=== PATIENT | male | born 1955 | race Caucasian/White ===

== ENCOUNTER 2021-10-06 01:40 | Inpatient (IN) | payer MEDICARE, MEDICAID ==
[~2021-10-06] VITALS: Ht 167.6 cm; Wt 81.7 kg
[2021-10-06] VITALS (23 sets, daily range): BP systolic 68–161; BP diastolic 25–86
[2021-10-06] MEDS ORDERED: NORepinephrine 8mg/ 250ml NS 250 ML IV ONE (04:17)
--- NOTE | 2021-10-06 04:30 | NUR ---
Pt accepted from outside facility. Makes noises and cries out "mama" to noxious stimuli. O2 @ 2L/NC. Breath sounds clear feliberto. Mouth full of chunky yellow substance. aggressive oral care given to clear airway. PIVx3, Lt hand 20g occluded. LFA 20g with good blood return. Levo infusing at 0.4mcg/kg/min. 20g IV RH with NS 20ml/hr. Peg clamped, site clear. Incont of stool. Sacral area and buttocks with purple discoloration and questionable open area. Photo taken. Feliberto heels reddened, Rt heel boggy to touch, photos take, Lt medial maleolous reddened.
[2021-10-06] MEDS ORDERED: magnesium hydroxide 30ml (MOM) UD suspension PO PRN (04:50)
[2021-10-06] MEDS ORDERED: ondansetron/PF 4mg/2ml inj IV PRN ×2 (04:50→11:20)
[2021-10-06] MEDS ORDERED: LIDOcaine 2% 10ml TOPICAL JELLY (Urojet) TP ONE (04:50)
[2021-10-06] MEDS ORDERED: potassium Cl 20 mEq SR tablet PO PRN ×3 (04:50→08:30)
[2021-10-06] MEDS ORDERED: acetaminophen 325mg tablet PO PRN ×2 (04:50)
[2021-10-06] MEDS ORDERED: NOREPINEPHRINE BITARTRATE/D5W 250 ML IV PRN (05:00)
[2021-10-06] MEDS ORDERED: NORepinephrine 8mg/ 250ml NS 250 ML IV PRN (05:00)
[2021-10-06] MEDS ORDERED: vancomycin 1,750 MG in NS 350ml IV soln IV ONE (05:30)
--- NOTE | 2021-10-06 05:30 | NUR ---
noted BP cuff too large. appropriately sized cuff placed. Weaning levo off, NS bolus nearly complete
[2021-10-06 06:26] LABS: BASOPHILS % (AUTO) 0.1 % (0-1); EOSINOPHILS % (AUTO) 0 % (0-6); HEMATOCRIT 35.2 % (42.0-52.0); HEMOGLOBIN 11.3 g/dl (14.0-17.9); MEAN CORPUSCULAR HEMOGLOBIN 26.5 PG (27.0-31.0); MEAN CORPUSCULAR HGB CONC 32.1 g/dL (33.0-36.5); MEAN CORPUSCULAR VOLUME 82.5 FL (78-98); MONOCYTES # (AUTO) 1.4 X10'3 (0-0.9); MONOCYTES % (AUTO) 7.9 % (2-12); NEUTROPHILS # (AUTO) 14.8 X10'3 (1.8-7.7); PLATELET COUNT 237 X10'3 (140-440); RED BLOOD COUNT 4.26 X10'6 (4.70-6.10); RED CELL DISTRIBUTION WIDTH 19.2 % (11.5-14.5); WHITE BLOOD COUNT 18.3 X10'3 (4.5-11.0)
[2021-10-06] MEDS ORDERED: CLOP-32 PEG (06:38)
[2021-10-06] MEDS ORDERED: MAGN400O6 PEG (06:38)
[2021-10-06] MEDS ORDERED: ACET-890 PEG (06:38)
[2021-10-06] MEDS ORDERED: POLY17PO10 PEG (06:38)
[2021-10-06] MEDS ORDERED: PEG15DRO6 EACHEYE (06:38)
[2021-10-06] MEDS ORDERED: SENN-263 PEG (06:38)
[2021-10-06] MEDS ORDERED: METF-436 PEG (06:38)
[2021-10-06] MEDS ORDERED: LEVO500P12 IV (06:38)
[2021-10-06] MEDS ORDERED: ONDA4VIA6 IV (06:38)
[2021-10-06] MEDS ORDERED: INSU100C10 SQ (06:38)
[2021-10-06] MEDS ORDERED: TOPI50TA24 PEG (06:38)
[2021-10-06] MEDS ORDERED: ATOR40TA71 PEG (06:38)
[2021-10-06] MEDS ORDERED: TERA1CAP4 PEG (06:38)
[2021-10-06] MEDS ORDERED: PARO40TA4 PEG (06:38)
[2021-10-06] MEDS ORDERED: AMLO10TA PEG (06:38)
[2021-10-06] MEDS ORDERED: OMEP40CA21 PEG (06:38)
[2021-10-06] MEDS ORDERED: LOSA50TA64 PEG (06:38)
[2021-10-06 06:42] LABS: APTT 36 SECONDS (22-32)
[2021-10-06 06:49] LABS: CLARITY,URINE CLEAR (Clear); COLOR,URINE YELLOW (Yellow); GLUCOSE, URINE NEGATIVE (Neg); KETONES,URINE NEGATIVE (Neg); LEUKOCYTE ESTERASE ,URINE NEGATIVE (Neg); NITRITES, URINE NEGATIVE (Neg); OCCULT BLOOD,URINE SMALL (Neg); PROTEIN,URINE 30 mg/dl (Neg); UROBILINOGEN,URINE 0.2 E.U/dL (0.2-1.0)
--- NOTE | 2021-10-06 07:23 | NUR ---
Patient in room ICU 2044. I have received report from Amanda FU and had the opportunity to ask questions and assume patient care. Addendum: 10/06/21 at 0723 by Aurelia Randhawa RN Amended: Links added.
[2021-10-06] MEDS: heparin, porcine 5000 units/ml vial SQ SCH ×2 (07:34→20:31)
[2021-10-06 07:50] LABS: ALANINE AMINOTRANSFERASE 10 U/L (12-78); ALBUMIN 1.9 G/DL (3.4-5.0); ALBUMIN/GLOBULIN RATIO 0.5 (1.1-1.5); ALKALINE PHOSPHATASE 60 IU/L (46-116); ANION GAP 16 (8-16); ASPARTATE AMINO TRANSFERASE 15 U/L (10-37); BILIRUBIN,TOTAL 0.6 MG/DL (0.1-1.0); BLOOD UREA NITROGEN 41 MG/DL (7-18); BUN/CREATININE RATIO 25.5 (5.4-32.0); CALCIUM 7.6 MG/DL (8.5-10.1); CHLORIDE 116 MMOL/L (99-107); CREATININE 1.61 MG/DL (0.60-1.10); GLUCOSE 161 MG/DL (70-104); SODIUM 151 MMOL/L (135-145); TOTAL CARBON DIOXIDE 18.7 MMOL/L (24-32); TOTAL PROTEIN 5.7 G/DL (6.4-8.2); eGFR 43 ML/MIN
[2021-10-06] MEDS ORDERED: K and/or MAG REPLACEMENT MC SCH (08:00)
[2021-10-06 08:08] LABS: POTASSIUM 2.8 MMOL/L (3.5-5.1)
--- NOTE | 2021-10-06 08:24 | NUR ---
RN notified Dr. Saravia of LA 4.7, K 2.8. Orders received.
[2021-10-06] MEDS ORDERED: magnesium 4gm in 100ml NS 100 ML IV PRN (08:30)
[2021-10-06] MEDS ORDERED: magnesium 2GM in 50ml NS 50 ML IV PRN (08:30)
[2021-10-06] MEDS: piperacillin/tazo 3.375gm/50ml 50 ML IV SCH ×2 (08:50→15:34)
[2021-10-06] MEDS: potassium CL 10mEq/100ml bag 100 ML IV PRN ×2 (08:58→09:51)
[2021-10-06] MEDS: normal saline 1000ml 1,000 ML IV SCH ×2 (09:12→16:10)
[2021-10-06 09:29] LABS: BACTERIA,URINE FEW /HPF (Neg); RBC,URINE NONE SEEN /HPF (0-2); WBC,URINE 0-4 /HPF (0-4)
[2021-10-06] MEDS ORDERED: ALBU1.257 NEB (09:30)
[2021-10-06 09:31] LABS: AMORPHOUS URATES 2+; RENAL CELLS, URINE MODERATE /HPF; SQUAMOUS EPITHELIAL CELL,UR FEW /LPF (FEW); TRANSITIONAL EPI CELLS,URINE FEW /HPF
[2021-10-06 09:40] LABS: UA COLLECTION TYPE FOLEY CATH
[2021-10-06] MEDS ORDERED: diatr meglu/diatrizoate 30ml oral sol.-(3 dose) bottle ONE (10:00)
[2021-10-06] MEDS: potassium Cl 20mEq/100mL bag 100 ML IV PRN ×3 (10:53→13:11)
[2021-10-06] MEDS ORDERED: non-formulary drug (Insulin Lispro (Humalog) 1 UNITS) SQ PRN (11:20)
[2021-10-06] MEDS ORDERED: albuterol 1.25 MG/3 ML (1/2 strength) nebule NEB PRN (11:20)
[2021-10-06 11:21] LABS: BANDS% (MANUAL) 23 % (0-10); LYMPHOCYTES % (MANUAL) 17 % (21-51); MONOCYTES % (MANUAL) 5 % (2-12); NEUTROPHILS % (MANUAL) 55 % (42-75); PLATELET ESTIMATE NORMAL; TOTAL CELLS COUNTED 100
[2021-10-06 11:22] LABS: ACANTHOCYTES FEW; ANISOCYTOSIS 2+; BURR CELLS 3+; HYPOCHROMASIA 1+
[2021-10-06] MEDS ORDERED: atorvastatin 20mg tablet PO SCH (11:30)
[2021-10-06] MEDS ORDERED: PARoxetine 20mg tablet PO SCH (11:31)
[2021-10-06] MEDS ORDERED: clopidogrel 75mg tablet PO SCH (11:33)
[2021-10-06] MEDS ORDERED: MESSAGE TO PHARMACY PO ONE (11:35)
[2021-10-06] MEDS ORDERED: dextrose 50%-water 50ml dispensing syringe IV PRN ×2 (11:35)
[2021-10-06] MEDS ORDERED: insulin Lispro (HumaLOG) vial - multi-dose SQ SCH (11:35)
[2021-10-06] MEDS ORDERED: glucagon, human recombinant 1mg kit SUBCUT PRN (11:35)
[2021-10-06] MEDS ORDERED: dextrose ORAL solution 15 GM/59 ML bottle PO PRN ×2 (11:35)
[2021-10-06] MEDS ORDERED: albuterol 2.5 MG/3 ML nebule NEB PRN (11:37)
[2021-10-06] MEDS: topiramate 25mg tablet PEG SCH ×2 (11:50→20:32)
[2021-10-06] MEDS: hydrocortisone sod succ/PF 100mg/2ml inj. IV SCH ×3 (11:52→20:31)
[2021-10-06] MEDS: pantoprazole IV 40 MG in dextrose 5%-water 100 ML IV SCH (11:55)
--- NOTE | 2021-10-06 12:41 | NUR ---
Initial: Pt transferred from previous facility w/ hypotension, sepsis, peritonitis and potentially dislodged PEG per EMR. Per [employer], okay to start TF once proper positioning of PEG is confirmed, see recs below. No BM documented yet. Pt noted w/ purple discoloration on sacral area, pending WOC. Will continue to monitor TF tolerance and adjust needs as medically indicated. Recs: 1) Once PEG placement confirmed; Continuous TF using Vital AF at 65ml/hr goal to provide 1560ml volume, 1872kcals, 117g protein, 1265ml free water 2) Additional free water 200ml Q4H; monitor serum Na 3) PALB Q / 4) Daily wts 5) Routine Bowel care Addendum: 10/06/21 at [address] Amended: Links added. Addendum: 10/08/21 at [address] Tube Feed Consult
[2021-10-06] MEDS ORDERED: mineral oil/petrolatum ophthal oint EACHEYE SCH (14:00)
--- NOTE | 2021-10-06 15:30 | NUR ---
Dr. Saravia aware that pt's POA would like a phone call re. pt's status/dx/plan of care, etc.
[2021-10-06] MEDS ORDERED: acetaminophen 325mg tablet GT PRN (16:07)
[2021-10-06] MEDS ORDERED: dextrose ORAL solution 15 GM/59 ML bottle GT PRN ×2 (16:08)
[2021-10-06] MEDS ORDERED: magnesium hydroxide 30ml (MOM) UD suspension GT PRN (16:08)
[2021-10-06] MEDS ORDERED: potassium Cl 20 mEq SR tablet PEG PRN ×3 (16:09)
--- NOTE | 2021-10-06 18:00 | NUR ---
Dr. Saravia spoke with Pavithra cuevas's POA via phone.
--- NOTE | 2021-10-06 18:10 | NUR ---
Problems reprioritized. Patient report given, questions answered & plan of care reviewed with NOC RN.
--- NOTE | 2021-10-06 18:30 | NUR ---
Patient in room ICU 2044. I have received report from Aurelia FU and had the opportunity to ask questions and assume patient care.
[2021-10-06] MEDS: sennosides 8.6mg tablet PEG SCH (20:00)
[2021-10-06] MEDS: K and/or MAG REPLACEMENT MC SCH (20:00)
[2021-10-06] MEDS: lactobacillus rhamnosus 10,000 MMU CELLS/CAPSULE PEG SCH (20:31)
[2021-10-06] MEDS: insulin glargine (Lantus) pen - multi-dose SQ SCH (21:00)
[2021-10-06] MEDS: polyethylene glycol 3350 17gm powd pack PEG SCH (21:24)
[2021-10-07] VITALS (24 sets, daily range): BP systolic 104–160; BP diastolic 48–84
[2021-10-07] MEDS: piperacillin/tazo 3.375gm/50ml 50 ML IV SCH ×4 (00:07→23:46)
[2021-10-07] MEDS: hydrocortisone sod succ/PF 100mg/2ml inj. IV SCH ×4 (01:49→20:15)
[2021-10-07 06:05] LABS: BASOPHILS % (AUTO) 0 % (0-1); EOSINOPHILS % (AUTO) 0 % (0-6); HEMOGLOBIN 13.4 g/dl (14.0-17.9); LYMPHOCYTES # (AUTO) 0.8 X10'3 (1.1-4.8); LYMPHOCYTES % (AUTO) 5.3 % (21-51); MEAN CORPUSCULAR HEMOGLOBIN 25.9 PG (27.0-31.0); MEAN CORPUSCULAR HGB CONC 31.9 g/dL (33.0-36.5); MEAN CORPUSCULAR VOLUME 81.2 FL (78-98); MEAN PLATELET VOLUME 9.5 FL (7.4-10.4); MONOCYTES # (AUTO) 0.6 X10'3 (0-0.9); MONOCYTES % (AUTO) 4.3 % (2-12); NEUTROPHILS # (AUTO) 12.8 X10'3 (1.8-7.7); NEUTROPHILS % (AUTO) 90.4 % (42-75); PLATELET COUNT 308 X10'3 (140-440); RED BLOOD COUNT 5.18 X10'6 (4.70-6.10); RED CELL DISTRIBUTION WIDTH 20.5 % (11.5-14.5); WHITE BLOOD COUNT 14.2 X10'3 (4.5-11.0)
[2021-10-07 06:30] LABS: ALBUMIN 1.9 G/DL (3.4-5.0); ANION GAP 16 (8-16); BLOOD UREA NITROGEN 36 MG/DL (7-18); BUN/CREATININE RATIO 28.3 (5.4-32.0); CALCIUM 8.7 MG/DL (8.5-10.1); CHLORIDE 117 MMOL/L (99-107); CREATININE 1.27 MG/DL (0.60-1.10); GLUCOSE 182 MG/DL (70-104); MAGNESIUM 2.2 MG/DL (1.5-2.4); PHOSPHORUS 3.6 MG/DL (2.3-4.5); POTASSIUM 3.7 MMOL/L (3.5-5.1); PREALBUMIN 7.2 MG/DL (19-36); SODIUM 147 MMOL/L (135-145); eGFR 57 ML/MIN
[2021-10-07 06:37] LABS: TOTAL CARBON DIOXIDE 14.3 MMOL/L (24-32)
[2021-10-07] MEDS: normal saline 1000ml 1,000 ML IV SCH (06:51)
[2021-10-07] MEDS: atorvastatin 20mg tablet GT SCH (07:11)
[2021-10-07] MEDS: clopidogrel 75mg tablet PEG SCH (07:11)
[2021-10-07] MEDS: lactobacillus rhamnosus 10,000 MMU CELLS/CAPSULE PEG SCH ×2 (07:12→20:16)
[2021-10-07] MEDS: topiramate 25mg tablet PEG SCH ×2 (07:12→20:16)
[2021-10-07] MEDS: sennosides 8.6mg tablet PEG SCH ×2 (07:12→20:16)
[2021-10-07] MEDS: PARoxetine 20mg tablet GT SCH (07:12)
[2021-10-07] MEDS: heparin, porcine 5000 units/ml vial SQ SCH ×2 (07:13→20:15)
[2021-10-07] MEDS: pantoprazole IV 40 MG in dextrose 5%-water 100 ML IV SCH (07:13)
[2021-10-07] MEDS: acetaminophen 325mg tablet PEG SCH (07:14)
[2021-10-07 07:15] LABS: PLATELET ESTIMATE NORMAL; TOTAL CELLS COUNTED 100
[2021-10-07 07:16] LABS: ANISOCYTOSIS 2+; BURR CELLS 3+; ELLIPTOCYTES FEW; HYPOCHROMASIA 1+
[2021-10-07] MEDS: insulin regular, human U-100 3ml vial - multi-dose SQ SCH ×3 (07:28→20:54)
[2021-10-07] MEDS: vancomycin/NS 1 GM ADD-VANTAGE 250 ML IV SCH (07:35)
[2021-10-07] MEDS: K and/or MAG REPLACEMENT MC SCH (08:00)
[2021-10-07] MEDS: sodium bicarbonate (8.4%) inj. 150 MEQ in dextrose 5%-water 1,000 ML IV SCH ×2 (08:22→17:00)
--- NOTE | 2021-10-07 09:46 | NUR ---
Kade consult: Per [facility] note, pt w/ MEHREEN on coccyx. No change to nutrition recommendations at this time. Addendum: 10/07/21 at [address] Amended: Links added.
[2021-10-07] MEDS: HYDROmorphone inj. 0.5 MG/0.5 ML DISP.SYRIN IV PRN (13:28)
--- NOTE | 2021-10-07 15:45 | NUR ---
CASE MANAGEMENT called with update on pt's HX. "Pt. had Covid and multiple CVAs in last year, was taking pureed food PO and PEG tube was only in use PRN when more calories were needed. PEG tube has become dislodged multiple times."
--- NOTE | 2021-10-07 15:50 | NUR ---
RN called and notified Dr. Saravia of pt's low urine output and HX. that was found from case management. Orders received.
[2021-10-07] MEDS ORDERED: furosemide 20 MG/2 ML vial IV ONE (15:55)
--- NOTE | 2021-10-07 18:08 | NUR ---
Problems reprioritized. Patient report given, questions answered & plan of care reviewed with NOC RN.
--- NOTE | 2021-10-07 18:30 | NUR ---
Patient in room ICU 2044. I have received report from Aurelia FU and had the opportunity to ask questions and assume patient care.
[2021-10-07] MEDS: polyethylene glycol 3350 17gm powd pack PEG SCH (21:00)
[2021-10-07] MEDS: insulin glargine (Lantus) pen - multi-dose SQ SCH (21:00)
--- NOTE | 2021-10-07 21:00 | NUR ---
Pt tube feeding was above 500ml residual. Per protocol, tube feeding was turned off and 300ml returned. Lantus was held but humalog Addendum: 10/07/21 at 2121 by Eloisa Hong RN Corrected: Pt tube feeding was above 500ml residual. Per protocol, tube feeding was turned off and 300ml returned. Lantus was held but humaLIN was given. Pt will be receiving gastrografin for CAT scan in AM so tube feeding will remain off until Pt returns.
[2021-10-07] MEDS: diatr meglu/diatrizoate 30ml oral sol.-(3 dose) bottle PO SCH (21:48)
[2021-10-07] MEDS: Dextrose 10%-water IV solution 1,000 ML IV SCH (23:47)
[2021-10-08] VITALS (24 sets, daily range): BP systolic 81–137; BP diastolic 36–92
[2021-10-08] MEDS ORDERED: sodium chloride inj. 154 MEQ in Dextrose 10%-water IV solution 961.5 ML IV SCH ×2
[2021-10-08] MEDS: HYDROmorphone inj. 0.5 MG/0.5 ML DISP.SYRIN IV PRN ×4 (02:06→22:53)
[2021-10-08] MEDS: hydrocortisone sod succ/PF 100mg/2ml inj. IV SCH ×4 (02:06→20:15)
[2021-10-08] MEDS: insulin regular, human U-100 3ml vial - multi-dose SQ SCH ×3 (02:26→14:49)
[2021-10-08] MEDS: sodium bicarbonate (8.4%) inj. 150 MEQ in dextrose 5%-water 1,000 ML IV SCH (04:29)
[2021-10-08 06:16] LABS: BASOPHILS % (AUTO) 0.2 % (0-1); EOSINOPHILS % (AUTO) 0 % (0-6); HEMATOCRIT 37.2 % (42.0-52.0); HEMOGLOBIN 12.4 g/dl (14.0-17.9); LYMPHOCYTES # (AUTO) 0.5 X10'3 (1.1-4.8); LYMPHOCYTES % (AUTO) 5.5 % (21-51); MEAN CORPUSCULAR HEMOGLOBIN 26.1 PG (27.0-31.0); MEAN CORPUSCULAR HGB CONC 33.3 g/dL (33.0-36.5); MEAN CORPUSCULAR VOLUME 78.5 FL (78-98); MEAN PLATELET VOLUME 9.5 FL (7.4-10.4); MONOCYTES # (AUTO) 0.4 X10'3 (0-0.9); MONOCYTES % (AUTO) 4.3 % (2-12); NEUTROPHILS # (AUTO) 8.5 X10'3 (1.8-7.7); PLATELET COUNT 297 X10'3 (140-440); RED BLOOD COUNT 4.74 X10'6 (4.70-6.10); RED CELL DISTRIBUTION WIDTH 19.4 % (11.5-14.5); WHITE BLOOD COUNT 9.4 X10'3 (4.5-11.0)
[2021-10-08 06:21] LABS: ALBUMIN 1.3 G/DL (3.4-5.0); ANION GAP 13 (8-16); BLOOD UREA NITROGEN 37 MG/DL (7-18); BUN/CREATININE RATIO 22.8 (5.4-32.0); CALCIUM 8.2 MG/DL (8.5-10.1); CHLORIDE 110 MMOL/L (99-107); CREATININE 1.62 MG/DL (0.60-1.10); GLUCOSE 270 MG/DL (70-104); MAGNESIUM 2.5 MG/DL (1.5-2.4); PHOSPHORUS 3.4 MG/DL (2.3-4.5); SODIUM 144 MMOL/L (135-145); TOTAL CARBON DIOXIDE 21.5 MMOL/L (24-32); eGFR 43 ML/MIN
--- NOTE | 2021-10-08 06:25 | NUR ---
Problems reprioritized. Patient report given, questions answered & plan of care reviewed with Leoncio FU.
[2021-10-08] MEDS: potassium Cl 20mEq/100mL bag 100 ML IV PRN (06:57)
[2021-10-08] MEDS: diatr meglu/diatrizoate 30ml oral sol.-(3 dose) bottle PO SCH ×2 (07:20→15:06)
[2021-10-08] MEDS: K and/or MAG REPLACEMENT MC SCH ×2 (07:35→20:00)
[2021-10-08] MEDS: lansoprazole 15mg solutab PEG SCH (07:38)
[2021-10-08] MEDS: atorvastatin 20mg tablet GT SCH (07:38)
[2021-10-08] MEDS: lactobacillus rhamnosus 10,000 MMU CELLS/CAPSULE PEG SCH ×2 (07:38→20:10)
[2021-10-08] MEDS: clopidogrel 75mg tablet PEG SCH (07:39)
[2021-10-08] MEDS: piperacillin/tazo 3.375gm/50ml 50 ML IV SCH ×3 (07:40→23:57)
[2021-10-08] MEDS: heparin, porcine 5000 units/ml vial SQ SCH ×2 (07:40→20:15)
[2021-10-08] MEDS: PARoxetine 20mg tablet GT SCH (07:42)
[2021-10-08] MEDS: topiramate 25mg tablet PEG SCH ×2 (07:42→20:16)
[2021-10-08] MEDS: acetaminophen 325mg tablet PEG SCH (07:45)
[2021-10-08] MEDS: sennosides 8.6mg tablet PEG SCH ×2 (07:45→20:16)
[2021-10-08] MEDS: potassium CL 10mEq/100ml bag 100 ML IV PRN ×3 (08:16→23:57)
[2021-10-08 11:28] LABS: ANISOCYTOSIS 2+; PLATELET ESTIMATE NORMAL; TOTAL CELLS COUNTED 100
[2021-10-08 11:29] LABS: BURR CELLS 2+; ELLIPTOCYTES FEW; MICROCYTOSIS 1+
[2021-10-08] MEDS: vancomycin/NS 1 GM ADD-VANTAGE 250 ML IV SCH (11:33)
--- NOTE | 2021-10-08 12:00 | NUR ---
Patient present B/P 85/36 Hr 119 , the Levophed was restart until the B/P improve.
[2021-10-08] MEDS: metoclopramide 5 mg/ml inj IV SCH ×2 (13:06→20:15)
[2021-10-08] MEDS: sodium chloride 0.45% 1,000 ML IV SCH ×2 (13:06→21:45)
[2021-10-08] MEDS ORDERED: iohexol 300mg/ml 100ml inj. ONE (15:31)
[2021-10-08] MEDS: Dextrose 10%-water IV solution 1,000 ML IV SCH (16:50)
--- NOTE | 2021-10-08 18:30 | NUR ---
Patient in room ICU 2042. I have received report from Stanton FU and had the opportunity to ask questions and assume patient care.
[2021-10-08 19:46] LABS: MAGNESIUM 2.4 MG/DL (1.5-2.4); POTASSIUM 3.1 MMOL/L (3.5-5.1)
[2021-10-08] MEDS: polyethylene glycol 3350 17gm powd pack PEG SCH ×2 (20:16→21:00)
[2021-10-08] MEDS: insulin glargine (Lantus) pen - multi-dose SQ SCH (21:11)
[2021-10-09] VITALS (22 sets, daily range): BP systolic 68–124; BP diastolic 37–61
[2021-10-09] MEDS: metoclopramide 5 mg/ml inj IV SCH ×4 (02:23→20:39)
[2021-10-09] MEDS: hydrocortisone sod succ/PF 100mg/2ml inj. IV SCH ×4 (02:23→20:39)
[2021-10-09] MEDS: insulin regular, human U-100 3ml vial - multi-dose SQ SCH ×3 (02:34→14:33)
[2021-10-09] MEDS: potassium CL 10mEq/100ml bag 100 ML IV PRN ×2 (02:55→02:58)
[2021-10-09] MEDS ORDERED: albumin (Human) 5% 250ml 250 ML IV ONE ×3 (05:00→22:19)
[2021-10-09] MEDS: NORepinephrine 8mg/ 250ml NS 250 ML IV SCH ×2 (05:16→21:43)
--- NOTE | 2021-10-09 06:00 | NUR ---
Patient in room ICU 2042. I have received report from Kang FU and had the opportunity to ask questions and assume patient care.
--- NOTE | 2021-10-09 06:21 | NUR ---
Problems reprioritized. Patient report given, questions answered & plan of care reviewed with Gracie FU.
[2021-10-09] MEDS ORDERED: VANCOMYCIN LEVEL IV ONE (06:30)
[2021-10-09] MEDS: K and/or MAG REPLACEMENT MC SCH ×2 (08:00→20:00)
[2021-10-09] MEDS: topiramate 25mg tablet PEG SCH ×2 (08:00→20:00)
[2021-10-09] MEDS: acetaminophen 325mg tablet PEG SCH (08:07)
[2021-10-09] MEDS: atorvastatin 20mg tablet GT SCH (08:07)
[2021-10-09] MEDS: lactobacillus rhamnosus 10,000 MMU CELLS/CAPSULE PEG SCH ×2 (08:08→20:00)
[2021-10-09] MEDS: clopidogrel 75mg tablet PEG SCH (08:08)
[2021-10-09] MEDS: piperacillin/tazo 3.375gm/50ml 50 ML IV SCH ×2 (08:08→15:46)
[2021-10-09] MEDS: sodium chloride 0.45% 1,000 ML IV SCH ×2 (08:10→17:52)
[2021-10-09] MEDS: lansoprazole 15mg solutab PEG SCH (08:13)
[2021-10-09] MEDS: PARoxetine 20mg tablet GT SCH (08:13)
[2021-10-09] MEDS: sennosides 8.6mg tablet PEG SCH ×2 (08:17→20:00)
[2021-10-09] MEDS: heparin, porcine 5000 units/ml vial SQ SCH ×2 (08:21→20:00)
[2021-10-09 08:40] LABS: BASOPHILS % (AUTO) 0.1 % (0-1); EOSINOPHILS % (AUTO) 0 % (0-6); HEMATOCRIT 30.3 % (42.0-52.0); HEMOGLOBIN 9.9 g/dl (14.0-17.9); LYMPHOCYTES # (AUTO) 0.8 X10'3 (1.1-4.8); LYMPHOCYTES % (AUTO) 5.8 % (21-51); MEAN CORPUSCULAR HEMOGLOBIN 25.7 PG (27.0-31.0); MEAN CORPUSCULAR HGB CONC 32.6 g/dL (33.0-36.5); MEAN CORPUSCULAR VOLUME 78.8 FL (78-98); MEAN PLATELET VOLUME 9.1 FL (7.4-10.4); MONOCYTES # (AUTO) 0.7 X10'3 (0-0.9); MONOCYTES % (AUTO) 5.4 % (2-12); NEUTROPHILS # (AUTO) 12.1 X10'3 (1.8-7.7); NEUTROPHILS % (AUTO) 88.7 % (42-75); PLATELET COUNT 236 X10'3 (140-440); RED BLOOD COUNT 3.84 X10'6 (4.70-6.10); RED CELL DISTRIBUTION WIDTH 19.4 % (11.5-14.5); WHITE BLOOD COUNT 13.7 X10'3 (4.5-11.0)
[2021-10-09 09:25] LABS: BLOOD UREA NITROGEN 49 MG/DL (7-18); BUN/CREATININE RATIO 18.9 (5.4-32.0); CREATININE 2.59 MG/DL (0.60-1.10); eGFR 25 ML/MIN
[2021-10-09 09:28] LABS: ALBUMIN 1.4 G/DL (3.4-5.0); ANION GAP 10 (8-16); CALCIUM 7.9 MG/DL (8.5-10.1); CHLORIDE 103 MMOL/L (99-107); GLUCOSE 152 MG/DL (70-104); MAGNESIUM 2.5 MG/DL (1.5-2.4); PHOSPHORUS 4.2 MG/DL (2.3-4.5); POTASSIUM 3.8 MMOL/L (3.5-5.1); PREALBUMIN 4.5 MG/DL (19-36); SODIUM 136 MMOL/L (135-145)
[2021-10-09] MEDS: Dextrose 10%-water IV solution 1,000 ML IV SCH (09:49)
[2021-10-09 11:22] LABS: ANISOCYTOSIS 2+; BURR CELLS 3+; MICROCYTOSIS 1+; PLATELET ESTIMATE NORMAL
[2021-10-09 11:23] LABS: ELLIPTOCYTES FEW
[2021-10-09] MEDS: pantoprazole IV 40 MG in dextrose 5%-water 100 ML IV SCH (11:50)
--- NOTE | 2021-10-09 12:30 | NUR ---
Dr. Fofana at bedside, spoke to pts sister and consent obtained for exploratory laparotomy witnessed by me and an additional nurse. protonix given ivpb.
--- NOTE | 2021-10-09 13:46 | NUR ---
oral care performed, copious amount of thick secretions suctioned by me and respiratory therapy.
[2021-10-09] MEDS: HYDROmorphone inj. 0.5 MG/0.5 ML DISP.SYRIN IV PRN (14:09)
--- NOTE | 2021-10-09 14:26 | NUR ---
Reassessment: Pt TF off r/t peritonitis requiring ex lap per MD note. LBM 10/08 per EMR. Noted PALB 4.5 this AM yet to meet nutrition needs since admit 10/06. Currently receiving D10 at 60ml/hr providing 490 kcals/day. Will monitor for nutrition support needs post-op. Recs: 1) IF EN to resume; recommend continuous TF using Vital AF at 65ml/hr goal to provide 1560ml volume, 1872kcals, 117g protein, 1265ml free water 2) IF TF to resume; Additional free water 200ml Q4H; monitor serum Na 3) PALB Q /; Daily wts/scaled wt this admit 4) bowel care per post-op Addendum: 10/09/21 at [address] Amended: Links added.
[2021-10-09] MEDS ORDERED: ringers solution, lacted 1,000 ML IV SCH (17:45)
[2021-10-09] MEDS ORDERED: ondansetron/PF 4mg/2ml inj IV PRN (17:45)
[2021-10-09] MEDS ORDERED: NORepinephrine inj. 8 MG in dextrose 5%-water 242 ML IV SCH (17:45)
[2021-10-09] MEDS ORDERED: FENTANYL CITRATE/D5W/PF 100 ML IV PRN (17:45)
[2021-10-09] MEDS ORDERED: morphine 2 MG/ML inj. syringe IV PRN (17:45)
[2021-10-09] MEDS ORDERED: morphine 4 MG/ML inj SYRINge IV PRN (17:45)
[2021-10-09] MEDS ORDERED: LIDOcaine 1% (10mg/ml) 2ml vial ONE (17:58)
--- NOTE | 2021-10-09 18:26 | NUR ---
Problems reprioritized. Patient report given, questions answered & plan of care reviewed with Silvia FU.
--- NOTE | 2021-10-09 18:30 | NUR ---
Patient in room ICU 2042. I have received report from Tonja FU and had the opportunity to ask questions and assume patient care.
[2021-10-09] MEDS: polyethylene glycol 3350 17gm powd pack PEG SCH (20:40)
[2021-10-09] MEDS: insulin glargine (Lantus) pen - multi-dose SQ SCH (20:47)
[2021-10-09] MEDS ORDERED: MIDAZolam 1mg/ml 10ml vial ONE (21:10)
[2021-10-09] MEDS ORDERED: fentaNYL /PF 50mcg/ml 5ml ampule ONE (21:11)
[2021-10-09] MEDS ORDERED: propofol inj 20 ML IV ONE (21:12)
[2021-10-09] MEDS ORDERED: rocuronium 10mg/ml inj IV ONE ×2 (21:12→22:40)
--- NOTE | 2021-10-09 21:30 | NUR ---
Patient to OR with OR crew.
[2021-10-09] MEDS ORDERED: dexamethasone sod phosphate 10mg/ml inj ONE (21:37)
[2021-10-09] MEDS ORDERED: NORepinephrine 8 MG in NS 250 ML BAG (32 mcg/ml) IV ONE (21:37)
[2021-10-09] MEDS ORDERED: sevoflurane 250ml liquid IH ONE (21:37)
[2021-10-09] MEDS ORDERED: fluoroscein sod 10% (100mg/ml) 5ml vial ONE (23:13)
[2021-10-10] VITALS (23 sets, daily range): BP systolic 94–151; BP diastolic 47–65
[2021-10-10] MEDS: midazolam 100mg in NS 100ml 100 ML IV SCH ×2 (00:30→18:59)
[2021-10-10] MEDS: FENTANYL-0.9 % NACL/PF 100 ML IV PRN (00:31)
[2021-10-10 00:47] LABS: ABG BASE EXCESS -7.2 mmol/L (-2.0-2.0); ABG HCO3 18.7 mmol/L (22.0-26.0); ABG OXYGEN SATURATION 96.7 % (94-97); ABG PCO2 (T) 38.3 mmHg (35.0-48.0); ABG PO2 (T) 95.4 mmHg (75.0-100.0); FCOHb 0.3 % (0.0-3.9); FMetHb 0.4 % (0.0-1.5); PATIENT TEMPERATURE 36.7; PEEP 5 cm H2O; RESPIRATORY RATE 10 b/min; TIDAL VOLUME 600 mL; TOTAL HEMOGLOBIN 12.1 G/dl (14.0-18.0)
[2021-10-10] MEDS: piperacillin/tazo 3.375gm/50ml 50 ML IV SCH ×3 (01:31→19:26)
[2021-10-10] MEDS: hydrocortisone sod succ/PF 100mg/2ml inj. IV SCH ×4 (01:32→19:26)
[2021-10-10] MEDS: metoclopramide 5 mg/ml inj IV SCH ×2 (01:32→08:30)
[2021-10-10] MEDS: Dextrose 10%-water IV solution 1,000 ML IV SCH ×2 (01:35→04:50)
[2021-10-10 02:25] LABS: BASOPHILS % (AUTO) 0.2 % (0-1); EOSINOPHILS % (AUTO) 0.1 % (0-6); HEMATOCRIT 32.9 % (42.0-52.0); HEMOGLOBIN 10.8 g/dl (14.0-17.9); LYMPHOCYTES # (AUTO) 0.2 X10'3 (1.1-4.8); LYMPHOCYTES % (AUTO) 1.1 % (21-51); MEAN CORPUSCULAR HEMOGLOBIN 25.8 PG (27.0-31.0); MEAN CORPUSCULAR HGB CONC 32.9 g/dL (33.0-36.5); MEAN CORPUSCULAR VOLUME 78.3 FL (78-98); MEAN PLATELET VOLUME 9.3 FL (7.4-10.4); MONOCYTES # (AUTO) 0.6 X10'3 (0-0.9); MONOCYTES % (AUTO) 3.5 % (2-12); NEUTROPHILS % (AUTO) 95.1 % (42-75); PLATELET COUNT 325 X10'3 (140-440); RED CELL DISTRIBUTION WIDTH 19.6 % (11.5-14.5); WHITE BLOOD COUNT 17.9 X10'3 (4.5-11.0)
[2021-10-10 02:41] LABS: ALBUMIN 1.9 G/DL (3.4-5.0); ANION GAP 16 (8-16); BLOOD UREA NITROGEN 55 MG/DL (7-18); BUN/CREATININE RATIO 17.7 (5.4-32.0); CHLORIDE 101 MMOL/L (99-107); GLUCOSE 181 MG/DL (70-104); MAGNESIUM 2.4 MG/DL (1.5-2.4); PHOSPHORUS 5.2 MG/DL (2.3-4.5); POTASSIUM 3.3 MMOL/L (3.5-5.1); SODIUM 135 MMOL/L (135-145); TOTAL CARBON DIOXIDE 18.3 MMOL/L (24-32); eGFR 20 ML/MIN
[2021-10-10] MEDS: potassium CL 10mEq/100ml bag 100 ML IV PRN (03:18)
[2021-10-10 04:00] LABS: ANISOCYTOSIS 2+; PLATELET ESTIMATE NORMAL
[2021-10-10 04:01] LABS: BURR CELLS 3+; MICROCYTOSIS 1+
[2021-10-10] MEDS ORDERED: ringers solution, lacted 1,000 ML IV SCH (04:40)
[2021-10-10] MEDS: normal saline 1000ml 1,000 ML IV SCH ×2 (04:54→08:40)
--- NOTE | 2021-10-10 06:20 | NUR ---
Problems reprioritized. Patient report given, questions answered & plan of care reviewed with Ranjit FU.
[2021-10-10] MEDS: topiramate 25mg tablet PEG SCH ×2 (08:00→19:27)
[2021-10-10] MEDS: K and/or MAG REPLACEMENT MC SCH ×2 (08:00→19:27)
[2021-10-10] MEDS: acetaminophen 325mg tablet PEG SCH (08:00)
[2021-10-10] MEDS: sennosides 8.6mg tablet PEG SCH ×2 (08:00→19:27)
[2021-10-10] MEDS: lactobacillus rhamnosus 10,000 MMU CELLS/CAPSULE PEG SCH ×2 (08:00→19:26)
[2021-10-10] MEDS: PARoxetine 20mg tablet GT SCH (08:00)
[2021-10-10] MEDS: atorvastatin 20mg tablet GT SCH (08:00)
[2021-10-10] MEDS: clopidogrel 75mg tablet PEG SCH (08:00)
[2021-10-10] MEDS: pantoprazole IV 40 MG in dextrose 5%-water 100 ML IV SCH (08:29)
[2021-10-10] MEDS: heparin, porcine 5000 units/ml vial SQ SCH ×2 (08:31→19:26)
[2021-10-10] MEDS: insulin regular, human U-100 3ml vial - multi-dose SQ SCH ×3 (08:39→20:48)
[2021-10-10] MEDS: NORepinephrine 8mg/ 250ml NS 250 ML IV SCH (09:26)
[2021-10-10] MEDS ORDERED: vancomycin/NS 1 GM ADD-VANTAGE 250 ML IV PRN (11:45)
[2021-10-10] MEDS: dextrose 5%-lactated ringers 1,000 ML IV SCH ×2 (11:50→22:04)
[2021-10-10 12:31] LABS: VANCOMYCIN,RANDOM 17.1 UG/ML
--- NOTE | 2021-10-10 15:22 | NUR ---
Wound packing removed per MD order.
[2021-10-10] MEDS: insulin glargine (Lantus) pen - multi-dose SQ SCH (20:49)
[2021-10-10] MEDS: polyethylene glycol 3350 17gm powd pack PEG SCH (21:04)
--- NOTE | 2021-10-10 23:59 | NUR ---
Pt is a 66 yo male, full code, NDA, admitted 10/07/2021, day 5 of hospitalization, PMHX of CVA, dementia, PEG tube placement who presents from OSH as direct admit for hypotension. The pt reportedly had a PEG tube malfunction which was manipulated and feeds restarted. There is now abdominal pain and possible abdominal sepsis. The pt was transferred to OSH and then give 4 L crystalloid, Zosyn meropenem and Levaquin then started on levo through peripheral line and transferred to [place]. On arrival, the pt has BP of 80/40 on levo and so abx reinstated and pt given 1 L crystalloid. Currently, pt is s/p X-LAP placement of new gastric tube and abdominal clean out. Pt is afebrile, sedated with Fentanyl 50 mcgs (5 ml's), Versed 3 mg (3 ml's). Pt is unresponsive. Presence of bilateral soft wrist restraints. Orders and documentation in accordance with facility policies and procedures. HR 60-70's, NSR, weak pulses, left wrist A-Line BP 118/56, good square wave, flushes well with good blood return, Line zeroed. BP supported with Levophed at .06 mcgs (9.02 ml's). +3 generalized edema. SQ heparin for DVT prophylaxis. All IVF infusing via RIJ TLC. All port f/p, good blood return, dressing CDI. Intubated with ETT 7.0 23 cm. Vent: SIMV: rate 18, TV 400, Fio2 40% PEEP 5. Pulse ox 100% tolerating vent settings well. Breath sounds, coarse diminished, equal symmetrical, non labored. Hypoactive bowel sounds, round, mildly distended with a midline incision, dressing CDI. NPO. NGT Rt nare, draining green/brown stomach content. MARYAM drain draining SS fluid. Protonix for GI prophylaxis. Glucose chest Q 6 hours with coverage of Regular insulin and Lantus. At 20:00 glucose was 163 covered with 6 units of regular insulin. However, Lantus was increased to 29 units. IVF infusing D5 LR at 100 ml's/hr. Bladder non distended, Pappas draining clear yellow urine, grossly minimal amount of urine of 5 cc or less an hour. 10/10/2021 Renal US shows suboptimal examination with right kidney not able to be viewed and left kidney displays no evidence of hydronephrosis. Sacral DTI noted, Mepilex to sacral area, turn Q 2 hours. Continue ABX Zosyn and Vancomycin with Vancomycin due at 0300 today. Pt remains safe, continue to monitor.
[2021-10-11] VITALS (24 sets, daily range): BP systolic 101–138; BP diastolic 49–73
[2021-10-11] MEDS: hydrocortisone sod succ/PF 100mg/2ml inj. IV SCH ×4 (02:03→19:19)
[2021-10-11] MEDS: insulin regular, human U-100 3ml vial - multi-dose SQ SCH ×4 (02:24→20:06)
[2021-10-11] MEDS: VANCOMYCIN LEVEL IV SCH (03:00)
[2021-10-11 03:38] LABS: BASOPHILS % (AUTO) 0.2 % (0-1); EOSINOPHILS % (AUTO) 0 % (0-6); HEMATOCRIT 30.6 % (42.0-52.0); HEMOGLOBIN 9.9 g/dl (14.0-17.9); LYMPHOCYTES # (AUTO) 0.5 X10'3 (1.1-4.8); LYMPHOCYTES % (AUTO) 2.5 % (21-51); MEAN CORPUSCULAR HEMOGLOBIN 25.3 PG (27.0-31.0); MEAN CORPUSCULAR HGB CONC 32.3 g/dL (33.0-36.5); MEAN CORPUSCULAR VOLUME 78.4 FL (78-98); MONOCYTES # (AUTO) 0.7 X10'3 (0-0.9); MONOCYTES % (AUTO) 3.4 % (2-12); NEUTROPHILS # (AUTO) 18.3 X10'3 (1.8-7.7); NEUTROPHILS % (AUTO) 93.9 % (42-75); PLATELET COUNT 329 X10'3 (140-440); RED CELL DISTRIBUTION WIDTH 19.8 % (11.5-14.5); WHITE BLOOD COUNT 19.5 X10'3 (4.5-11.0)
[2021-10-11 03:48] LABS: ALBUMIN 1.3 G/DL (3.4-5.0); ANION GAP 15 (8-16); BLOOD UREA NITROGEN 61 MG/DL (7-18); BUN/CREATININE RATIO 16.5 (5.4-32.0); CALCIUM 7.7 MG/DL (8.5-10.1); CHLORIDE 102 MMOL/L (99-107); GLUCOSE 150 MG/DL (70-104); MAGNESIUM 2.3 MG/DL (1.5-2.4); PHOSPHORUS 5.1 MG/DL (2.3-4.5); POTASSIUM 3.6 MMOL/L (3.5-5.1); SODIUM 136 MMOL/L (135-145); TOTAL CARBON DIOXIDE 18.6 MMOL/L (24-32); VANCOMYCIN,RANDOM 18.6 UG/ML; eGFR 16 ML/MIN
[2021-10-11 04:21] LABS: ANISOCYTOSIS 2+; MICROCYTOSIS 1+; PLATELET ESTIMATE NORMAL; TOTAL CELLS COUNTED 100
[2021-10-11 04:22] LABS: BURR CELLS 3+
[2021-10-11 04:25] LABS: ABG BASE EXCESS -7.3 mmol/L (-2.0-2.0); ABG HCO3 16.7 mmol/L (22.0-26.0); ABG OXYGEN SATURATION 97.5 % (94-97); ABG PCO2 (T) 27.8 mmHg (35.0-48.0); ABG PO2 (T) 99.2 mmHg (75.0-100.0); FCOHb 0.3 % (0.0-3.9); FMetHb 0.3 % (0.0-1.5); FO2Hb 96.9 % (94-97); PATIENT TEMPERATURE 36.3; PEEP 5 cm H2O; RESPIRATORY RATE 18 b/min; TIDAL VOLUME 400 mL; TOTAL HEMOGLOBIN 10.8 G/dl (14.0-18.0)
[2021-10-11 05:58] LABS: CLARITY,URINE SLIGHTLY CLOUDY (Clear); COLOR,URINE YELLOW (Yellow); GLUCOSE, URINE NEGATIVE (Neg); KETONES,URINE NEGATIVE (Neg); LEUKOCYTE ESTERASE ,URINE NEGATIVE (Neg); NITRITES, URINE NEGATIVE (Neg); OCCULT BLOOD,URINE MODERATE (Neg); PROTEIN,URINE TRACE mg/dl (Neg); UROBILINOGEN,URINE 0.2 E.U/dL (0.2-1.0)
[2021-10-11 06:05] LABS: UA COLLECTION TYPE NON-SPECIFIED
[2021-10-11 06:07] LABS: BACTERIA,URINE FEW /HPF (Neg); SQUAMOUS EPITHELIAL CELL,UR FEW /LPF (FEW); URIC ACID CRYSTALS 1+ /HPF (NEGATIVE); WBC,URINE 0-4 /HPF (0-4)
[2021-10-11 06:08] LABS: AMORPHOUS URATES 1+
[2021-10-11] MEDS: NORepinephrine 8mg/ 250ml NS 250 ML IV SCH ×2 (07:23→23:59)
[2021-10-11] MEDS: dextrose 5%-lactated ringers 1,000 ML IV SCH ×2 (07:45→16:48)
[2021-10-11] MEDS: clopidogrel 75mg tablet PEG SCH (08:00)
[2021-10-11] MEDS: sennosides 8.6mg tablet PEG SCH ×2 (08:00→19:20)
[2021-10-11] MEDS: lactobacillus rhamnosus 10,000 MMU CELLS/CAPSULE PEG SCH ×2 (08:00→19:20)
[2021-10-11] MEDS: topiramate 25mg tablet PEG SCH ×2 (08:00→19:20)
[2021-10-11] MEDS: K and/or MAG REPLACEMENT MC SCH ×2 (08:00→19:20)
[2021-10-11] MEDS: atorvastatin 20mg tablet GT SCH (08:00)
[2021-10-11] MEDS: acetaminophen 325mg tablet PEG SCH (08:00)
[2021-10-11] MEDS: PARoxetine 20mg tablet GT SCH (08:00)
[2021-10-11] MEDS: pantoprazole IV 40 MG in dextrose 5%-water 100 ML IV SCH (08:59)
[2021-10-11] MEDS: heparin, porcine 5000 units/ml vial SQ SCH ×2 (09:03→19:19)
[2021-10-11] MEDS: piperacillin/tazo 3.375gm/50ml 50 ML IV SCH ×2 (09:03→19:19)
[2021-10-11 10:20] LABS: CLARITY,URINE CLOUDY (Clear); COLOR,URINE YELLOW (Yellow); GLUCOSE, URINE NEGATIVE (Neg); KETONES,URINE NEGATIVE (Neg); LEUKOCYTE ESTERASE ,URINE NEGATIVE (Neg); NITRITES, URINE NEGATIVE (Neg); OCCULT BLOOD,URINE MODERATE (Neg); PROTEIN,URINE TRACE mg/dl (Neg); UROBILINOGEN,URINE 0.2 E.U/dL (0.2-1.0)
[2021-10-11 10:26] LABS: UA COLLECTION TYPE NON-SPECIFIED
[2021-10-11 10:27] LABS: AMORPHOUS URATES 1+; BACTERIA,URINE NONE SEEN /HPF (Neg); MUCUS STRANDS FEW /LPF (Neg); RBC,URINE 0-2 /HPF (0-2); SQUAMOUS EPITHELIAL CELL,UR FEW /LPF (FEW); WBC,URINE 0-4 /HPF (0-4)
[2021-10-11] MEDS ORDERED: normal saline 1000ml 1,000 ML IV ONE (10:35)
[2021-10-11 10:47] LABS: UA EOSINOPHILS NO EOS /HPF
[2021-10-11 10:55] LABS: SODIUM,URINE RANDOM < 15 MEQ/L; TOTAL PROTEIN,URINE RANDOM 146.4 MG/DL
--- NOTE | 2021-10-11 12:36 | NUR ---
TF consult: Pt s/p G-tube revision 10/09. Okay to start trickle TF per MD. Will place additional TF recommendations below for once MD okays advancing goal rate to meet estimated nutrient needs. Noted pt receiving D5/LR at 100 mL/hr providing 408 kcal/day. LBM 10/09 per I&O. Will continue to follow closely and make recommendations as appropriate. Recommendations: 1) Trickle TF via G-tube per MD using Vital AF with goal rate of 15 mL/hr to provide 360 mL total volume/day, 432 kcal, 27 g protein, and 292 mL water 2) Once okay to advance TF, continuous Vital AF with 65 ml/hr goal to provide 1560 ml volume/day, 1872 kcal, 117 g protein, 1265 ml water 3) Once TF advances, monitor serum Na for water flush recommendations 4) PALB q Wednesday/ 5) Daily scaled weights 6) Bowel care per MD post-op Addendum: 10/11/21 at [address] Amended: Links added.
[2021-10-11] MEDS: FENTANYL-0.9 % NACL/PF 100 ML IV PRN (12:40)
[2021-10-11] MEDS: polyethylene glycol 3350 17gm powd pack PEG SCH (20:01)
[2021-10-11] MEDS: insulin glargine (Lantus) pen - multi-dose SQ SCH (20:09)
[2021-10-12] VITALS (24 sets, daily range): BP systolic 81–145; BP diastolic 48–82
[2021-10-12] MEDS: hydrocortisone sod succ/PF 100mg/2ml inj. IV SCH ×4 (01:04→19:46)
[2021-10-12] MEDS: insulin regular, human U-100 3ml vial - multi-dose SQ SCH (02:34)
[2021-10-12] MEDS: VANCOMYCIN LEVEL IV SCH ×2 (02:53→23:49)
[2021-10-12] MEDS: dextrose 5%-lactated ringers 1,000 ML IV SCH ×3 (02:55→23:56)
[2021-10-12 03:49] LABS: BASOPHILS % (AUTO) 0.1 % (0-1); EOSINOPHILS % (AUTO) 0 % (0-6); HEMOGLOBIN 9.8 g/dl (14.0-17.9); LYMPHOCYTES # (AUTO) 0.5 X10'3 (1.1-4.8); LYMPHOCYTES % (AUTO) 2.4 % (21-51); MEAN CORPUSCULAR HEMOGLOBIN 25.5 PG (27.0-31.0); MEAN CORPUSCULAR HGB CONC 32.7 g/dL (33.0-36.5); MEAN PLATELET VOLUME 9.3 FL (7.4-10.4); MONOCYTES # (AUTO) 0.6 X10'3 (0-0.9); NEUTROPHILS # (AUTO) 20.2 X10'3 (1.8-7.7); NEUTROPHILS % (AUTO) 94.5 % (42-75); PLATELET COUNT 325 X10'3 (140-440); RED BLOOD COUNT 3.85 X10'6 (4.70-6.10); RED CELL DISTRIBUTION WIDTH 19.9 % (11.5-14.5); WHITE BLOOD COUNT 21.4 X10'3 (4.5-11.0)
[2021-10-12] MEDS: FENTANYL-0.9 % NACL/PF 100 ML IV PRN (03:54)
[2021-10-12 04:06] LABS: ALBUMIN 1.1 G/DL (3.4-5.0); ANION GAP 16 (8-16); BLOOD UREA NITROGEN 66 MG/DL (7-18); BUN/CREATININE RATIO 16.3 (5.4-32.0); CALCIUM 7.9 MG/DL (8.5-10.1); CHLORIDE 105 MMOL/L (99-107); CREATININE 4.05 MG/DL (0.60-1.10); GLUCOSE 116 MG/DL (70-104); MAGNESIUM 2.3 MG/DL (1.5-2.4); PHOSPHORUS 4.9 MG/DL (2.3-4.5); POTASSIUM 3.5 MMOL/L (3.5-5.1); SODIUM 138 MMOL/L (135-145); TOTAL CARBON DIOXIDE 16.8 MMOL/L (24-32); VANCOMYCIN,RANDOM 16.7 UG/ML; eGFR 15 ML/MIN
--- NOTE | 2021-10-12 04:22 | NUR ---
Pt is a 66 yo male, full code, NDA, admitted 10/07/2021, day 6 of hospitalization, PMHX of CVA, dementia, PEG tube placement who presents from OSH as direct admit for hypotension. The pt reportedly had a PEG tube malfunction which was manipulated and feeds restarted. There is now abdominal pain and possible abdominal sepsis. The pt was transferred to OSH and then give 4 L crystalloid, Zosyn meropenem and Levaquin then started on levo through peripheral line and transferred to [place]. On arrival, the pt has BP of 80/40 on levo and so abx reinstated and pt given 1 L crystalloid. Currently, pt is s/p X-LAP placement of new gastric tube and abdominal clean out. Pt is afebrile, sedated with Fentanyl 50 mcgs (5 ml's). Pt is unresponsive. HR 60-70's, NSR, weak pulses, left wrist A-Line BP 118/56, good square wave, flushes well with good blood return, Line zeroed. BP supported with Levophed at .03 mcgs (4.51 ml's). +3 generalized edema. SQ heparin for DVT prophylaxis. All IVF infusing via RIJ TLC. All port f/p, good blood return, dressing CDI. Intubated with ETT 7.0 23 cm. Vent: SIMV: rate 18, TV 400, Fio2 40% PEEP 5, PS 10. Pulse ox 100% tolerating vent settings well. Breath sounds, clear diminished, equal symmetrical, non labored. Hypoactive bowel sounds, round, mildly distended with a midline incision, [employer] notable drainage at suture site. Tube feeding, Vital AF, started at 15 ml's hr, infusing via Peg tube. MARYAM drain draining SS fluid. Protonix for GI prophylaxis. Glucose chest Q 6 hours with coverage of Regular insulin and Lantus. At 20:00 glucose was 125 covered with 5 units, Level 6, regular insulin. Glucose at 0200, 102, 4 units of nutritional coverage. IVF infusing D5 LR at 100 ml's/hr. Bladder non distended, Pappas draining clear yellow urine, grossly minimal amount of urine of 5 cc or less an hour. 10/10/2021 Renal US shows suboptimal examination with right kidney not able to be viewed and left kidney displays no evidence of hydronephrosis. Sacral DTI noted, Mepilex to sacral area, turn Q 2 hours. Continue ABX Zosyn and Vancomycin with Vancomycin due at 0300 today. Pt remains safe, continue to monitor.
[2021-10-12 05:26] LABS: ABG BASE EXCESS -8.3 mmol/L (-2.0-2.0); ABG HCO3 15.2 mmol/L (22.0-26.0); ABG OXYGEN SATURATION 94.9 % (94-97); ABG PCO2 (T) 25.6 mmHg (35.0-48.0); ABG PO2 (T) 79.2 mmHg (75.0-100.0); FCOHb 0.3 % (0.0-3.9); FMetHb 0.3 % (0.0-1.5); FO2Hb 94.3 % (94-97); PEEP 5 cm H2O; RESPIRATORY RATE 18 b/min; TIDAL VOLUME 400 mL; TOTAL HEMOGLOBIN 10.6 G/dl (14.0-18.0)
[2021-10-12 06:02] LABS: ANISOCYTOSIS 2+; MICROCYTOSIS 1+; NUCLEATED RED BLOOD CELLS 1 /100WBC (0-0); PLATELET ESTIMATE NORMAL; TOTAL CELLS COUNTED 100
[2021-10-12 06:03] LABS: BURR CELLS 3+; LARGE PLATELETS FEW
[2021-10-12] MEDS: K and/or MAG REPLACEMENT MC SCH ×2 (08:00→20:00)
[2021-10-12] MEDS: clopidogrel 75mg tablet PEG SCH (08:00)
[2021-10-12] MEDS: topiramate 25mg tablet PEG SCH ×2 (08:44→19:46)
[2021-10-12] MEDS: PARoxetine 20mg tablet GT SCH (08:44)
[2021-10-12] MEDS: heparin, porcine 5000 units/ml vial SQ SCH ×2 (08:45→19:46)
[2021-10-12] MEDS: acetaminophen 325mg tablet PEG SCH (08:45)
[2021-10-12] MEDS: sennosides 8.6mg tablet PEG SCH ×2 (08:45→19:45)
[2021-10-12] MEDS: piperacillin/tazo 3.375gm/50ml 50 ML IV SCH ×2 (08:45→19:45)
[2021-10-12] MEDS: lactobacillus rhamnosus 10,000 MMU CELLS/CAPSULE PEG SCH ×2 (08:45→19:46)
[2021-10-12] MEDS: atorvastatin 20mg tablet GT SCH (08:45)
[2021-10-12] MEDS: pantoprazole IV 40 MG in dextrose 5%-water 100 ML IV SCH (08:58)
--- NOTE | 2021-10-12 18:24 | NUR ---
Problems reprioritized. Patient report given, questions answered & plan of care reviewed with NICKIE Betancourt.
--- NOTE | 2021-10-12 19:00 | NUR ---
Patient in room ICU 2042. I have received report from NICKIE Betancourt and had the opportunity to ask questions and assume patient care.
[2021-10-12] MEDS: NORepinephrine 8mg/ 250ml NS 250 ML IV SCH (19:21)
[2021-10-12] MEDS: polyethylene glycol 3350 17gm powd pack PEG SCH (20:04)
[2021-10-12] MEDS ORDERED: insulin Lispro (HumaLOG) vial - multi-dose SQ SCH (20:10)
[2021-10-12] MEDS: insulin glargine (Lantus) pen - multi-dose SQ SCH (20:27)
[2021-10-13] VITALS (23 sets, daily range): BP systolic 81–158; BP diastolic 31–74
[2021-10-13] MEDS: hydrocortisone sod succ/PF 100mg/2ml inj. IV SCH ×4 (02:26→21:14)
[2021-10-13 02:57] LABS: BASOPHILS # (AUTO) 0.1 X10'3 (0-0.2); BASOPHILS % (AUTO) 0.2 % (0-1); EOSINOPHILS % (AUTO) 0 % (0-6); HEMATOCRIT 33.1 % (42.0-52.0); HEMOGLOBIN 10.6 g/dl (14.0-17.9); LYMPHOCYTES # (AUTO) 0.5 X10'3 (1.1-4.8); LYMPHOCYTES % (AUTO) 2.1 % (21-51); MEAN CORPUSCULAR HEMOGLOBIN 25.1 PG (27.0-31.0); MEAN CORPUSCULAR HGB CONC 32.1 g/dL (33.0-36.5); MEAN CORPUSCULAR VOLUME 78.4 FL (78-98); MEAN PLATELET VOLUME 9.1 FL (7.4-10.4); MONOCYTES # (AUTO) 0.7 X10'3 (0-0.9); MONOCYTES % (AUTO) 3.3 % (2-12); NEUTROPHILS # (AUTO) 21.5 X10'3 (1.8-7.7); NEUTROPHILS % (AUTO) 94.4 % (42-75); PLATELET COUNT 389 X10'3 (140-440); RED BLOOD COUNT 4.22 X10'6 (4.70-6.10); RED CELL DISTRIBUTION WIDTH 20.5 % (11.5-14.5); WHITE BLOOD COUNT 22.7 X10'3 (4.5-11.0)
[2021-10-13] MEDS: FENTANYL-0.9 % NACL/PF 100 ML IV PRN (03:07)
[2021-10-13 03:42] LABS: BLOOD UREA NITROGEN 69 MG/DL (7-18); BUN/CREATININE RATIO 15.4 (5.4-32.0); CALCIUM 7.8 MG/DL (8.5-10.1); CHLORIDE 105 MMOL/L (99-107); CREATININE 4.47 MG/DL (0.60-1.10); GLUCOSE 130 MG/DL (70-104); MAGNESIUM 2.2 MG/DL (1.5-2.4); PHOSPHORUS 5.4 MG/DL (2.3-4.5); POTASSIUM 3.5 MMOL/L (3.5-5.1); PREALBUMIN 9.2 MG/DL (19-36); SODIUM 137 MMOL/L (135-145); TRIGLYCERIDES 151 MG/DL (20-135); VANCOMYCIN,RANDOM 13.9 UG/ML; eGFR 13 ML/MIN
[2021-10-13 03:53] LABS: ANION GAP 16 (8-16); TOTAL CARBON DIOXIDE 15.6 MMOL/L (24-32)
[2021-10-13 04:01] LABS: ABG BASE EXCESS -9.2 mmol/L (-2.0-2.0); ABG HCO3 14.9 mmol/L (22.0-26.0); ABG OXYGEN SATURATION 93.9 % (94-97); ABG PCO2 (T) 26.3 mmHg (35.0-48.0); ABG PO2 (T) 74.6 mmHg (75.0-100.0); FCOHb 0.1 % (0.0-3.9); FO2Hb 93.8 % (94-97); PATIENT TEMPERATURE 36.5; PEEP 5 cm H2O; TOTAL HEMOGLOBIN 11.2 G/dl (14.0-18.0)
[2021-10-13 04:07] LABS: ANISOCYTOSIS 3+; BURR CELLS 3+; LARGE PLATELETS FEW; MICROCYTOSIS 1+; PLATELET ESTIMATE NORMAL; TOTAL CELLS COUNTED 100
--- NOTE | 2021-10-13 06:34 | NUR ---
Problems reprioritized. Patient report given, questions answered & plan of care reviewed with NICKIE Dupont.
--- NOTE | 2021-10-13 06:35 | NUR ---
Patient in room ICU 2042. I have received report from Jes FU and had the opportunity to ask questions and assume patient care.
[2021-10-13] MEDS: pantoprazole IV 40 MG in dextrose 5%-water 100 ML IV SCH (07:21)
[2021-10-13] MEDS: heparin, porcine 5000 units/ml vial SQ SCH ×2 (07:25→21:16)
[2021-10-13] MEDS: sennosides 8.6mg tablet PEG SCH ×2 (07:25→21:16)
[2021-10-13] MEDS: acetaminophen 325mg tablet PEG SCH (07:26)
[2021-10-13] MEDS: clopidogrel 75mg tablet PEG SCH (07:26)
[2021-10-13] MEDS: topiramate 25mg tablet PEG SCH ×2 (07:26→21:15)
[2021-10-13] MEDS: atorvastatin 20mg tablet GT SCH (07:26)
[2021-10-13] MEDS: piperacillin/tazo 3.375gm/50ml 50 ML IV SCH ×2 (07:26→21:14)
[2021-10-13] MEDS: PARoxetine 20mg tablet GT SCH (07:26)
[2021-10-13] MEDS: lactobacillus rhamnosus 10,000 MMU CELLS/CAPSULE PEG SCH ×2 (07:26→21:15)
[2021-10-13] MEDS ORDERED: vancomycin inj. 750 MG in normal saline 250ml IV soln 250 ML IV ONE (07:45)
[2021-10-13] MEDS: K and/or MAG REPLACEMENT MC SCH ×2 (08:00→20:00)
[2021-10-13] MEDS: NORepinephrine 8mg/ 250ml NS 250 ML IV SCH (08:53)
[2021-10-13] MEDS: dextrose 5%-lactated ringers 1,000 ML IV SCH ×2 (09:45→14:40)
[2021-10-13] MEDS ORDERED: furosemide 20 MG/2 ML vial IV ONE (11:55)
[2021-10-13] MEDS: fluconazole-Diflucan 200mg/NS 100 ML IV SCH (12:19)
[2021-10-13] MEDS: midazolam 100mg in NS 100ml 100 ML IV SCH (17:45)
--- NOTE | 2021-10-13 18:20 | NUR ---
Problems reprioritized. Patient report given, questions answered & plan of care reviewed with Sierra FU.
[2021-10-13] MEDS: insulin glargine (Lantus) pen - multi-dose SQ SCH (21:00)
[2021-10-13] MEDS: polyethylene glycol 3350 17gm powd pack PEG SCH (21:14)
[2021-10-13] MEDS: diatr meglu/diatrizoate 30ml oral sol.-(3 dose) bottle PO SCH (21:27)
[2021-10-14] VITALS (28 sets, daily range): BP systolic 88–196; BP diastolic 45–143
[2021-10-14] MEDS: NORepinephrine 8mg/ 250ml NS 250 ML IV SCH (01:31)
[2021-10-14] MEDS: dextrose 5%-lactated ringers 1,000 ML IV SCH ×2 (02:48→14:25)
[2021-10-14] MEDS: hydrocortisone sod succ/PF 100mg/2ml inj. IV SCH ×5 (02:52→21:21)
[2021-10-14] MEDS: VANCOMYCIN LEVEL IV SCH (03:00)
[2021-10-14 03:11] LABS: BASOPHILS % (AUTO) 0.1 % (0-1); EOSINOPHILS % (AUTO) 0.1 % (0-6); HEMATOCRIT 33.3 % (42.0-52.0); HEMOGLOBIN 10.6 g/dl (14.0-17.9); LYMPHOCYTES # (AUTO) 0.6 X10'3 (1.1-4.8); LYMPHOCYTES % (AUTO) 2.8 % (21-51); MEAN CORPUSCULAR HEMOGLOBIN 25.3 PG (27.0-31.0); MEAN CORPUSCULAR HGB CONC 31.9 g/dL (33.0-36.5); MEAN CORPUSCULAR VOLUME 79.2 FL (78-98); MEAN PLATELET VOLUME 8.9 FL (7.4-10.4); MONOCYTES # (AUTO) 0.8 X10'3 (0-0.9); MONOCYTES % (AUTO) 3.6 % (2-12); NEUTROPHILS % (AUTO) 93.4 % (42-75); PLATELET COUNT 358 X10'3 (140-440); RED CELL DISTRIBUTION WIDTH 20.3 % (11.5-14.5); WHITE BLOOD COUNT 21.4 X10'3 (4.5-11.0)
[2021-10-14 03:36] LABS: ANION GAP 19 (8-16); BLOOD UREA NITROGEN 74 MG/DL (7-18); BUN/CREATININE RATIO 16.1 (5.4-32.0); CALCIUM 7.8 MG/DL (8.5-10.1); CHLORIDE 103 MMOL/L (99-107); CREATININE 4.61 MG/DL (0.60-1.10); GLUCOSE 166 MG/DL (70-104); MAGNESIUM 2.1 MG/DL (1.5-2.4); PHOSPHORUS 5.9 MG/DL (2.3-4.5); POTASSIUM 3.3 MMOL/L (3.5-5.1); SODIUM 138 MMOL/L (135-145); TOTAL CARBON DIOXIDE 15.7 MMOL/L (24-32); VANCOMYCIN,RANDOM 21.8 UG/ML; eGFR 13 ML/MIN
[2021-10-14 04:00] LABS: ABG BASE EXCESS -9.8 mmol/L (-2.0-2.0); ABG HCO3 14.6 mmol/L (22.0-26.0); ABG OXYGEN SATURATION 92.1 % (94-97); ABG PCO2 (T) 27.2 mmHg (35.0-48.0); ABG PO2 (T) 67.8 mmHg (75.0-100.0); FCOHb 0.3 % (0.0-3.9); FO2Hb 91.8 % (94-97); PATIENT TEMPERATURE 36.7; PEEP 5 cm H2O; TOTAL HEMOGLOBIN 10.8 G/dl (14.0-18.0)
[2021-10-14 04:47] LABS: ANISOCYTOSIS 3+; MICROCYTOSIS 1+; PLATELET ESTIMATE NORMAL; TOTAL CELLS COUNTED 100
[2021-10-14 04:48] LABS: BURR CELLS 3+
[2021-10-14] MEDS: diatr meglu/diatrizoate 30ml oral sol.-(3 dose) bottle PO SCH ×2 (07:07→21:33)
[2021-10-14] MEDS: acetaminophen 325mg tablet PEG SCH (07:36)
[2021-10-14] MEDS: atorvastatin 20mg tablet GT SCH (07:36)
[2021-10-14] MEDS: PARoxetine 20mg tablet GT SCH (07:36)
[2021-10-14] MEDS: clopidogrel 75mg tablet PEG SCH (07:36)
[2021-10-14] MEDS: lactobacillus rhamnosus 10,000 MMU CELLS/CAPSULE PEG SCH ×2 (07:37→21:08)
[2021-10-14] MEDS: topiramate 25mg tablet PEG SCH ×2 (07:37→21:08)
[2021-10-14] MEDS: sennosides 8.6mg tablet PEG SCH ×2 (07:37→21:08)
[2021-10-14] MEDS: pantoprazole IV 40 MG in dextrose 5%-water 100 ML IV SCH (07:37)
[2021-10-14] MEDS: piperacillin/tazo 3.375gm/50ml 50 ML IV SCH ×2 (07:38→21:07)
[2021-10-14] MEDS: heparin, porcine 5000 units/ml vial SQ SCH ×2 (07:38→21:07)
[2021-10-14] MEDS: fluconazole-Diflucan 200mg/NS 100 ML IV SCH (07:38)
[2021-10-14] MEDS: K and/or MAG REPLACEMENT MC SCH (07:39)
[2021-10-14] MEDS: furosemide 40mg/4ml inj IV SCH ×2 (10:57→16:54)
[2021-10-14] MEDS ORDERED: potassium Cl 40MEQ/250ML bag 270 ML IV PRN (14:15)
[2021-10-14] MEDS ORDERED: magnesium 4gm in 100ml NS 100 ML IV PRN (14:15)
[2021-10-14] MEDS ORDERED: Duosol 4k/NO Calcium 5,000 ML HE SCH ×2 (14:15→14:20)
[2021-10-14] MEDS ORDERED: calcium chloride inj. 1,000 MG in normal saline 100ml IV soln 100 ML IV PRN (14:15)
--- NOTE | 2021-10-14 15:35 | NUR ---
F/u 10/14: Pt remains intubated post-op TF stopped 12/12 AM though no RN note in EMR previously tolerating GRV WNL. Pt abdomen distended this AM s/p CT today pending RUQ fluid drain w/ PEG TF to restart at trickle today per MD. Pt also to start on CRRT given worsening renal function per MD; updated EN recs below if to advance. Currently day 8 no adequate nutrition intake in addition to rigid strength and BLE/BUE +2 edemas meeting severe malnutrition criteria; MD notified. IF pt to continue w/ prolonged NPO/trickle EN would benefit from TPN to meet needs given prolonged poor nutrition status. Noted no BM since admit 8 days as well receiving routine senna BID; may benefit from additional bowel care. Will continue to monitor for additional nutrition intervention needs. Recommendations: 1) Trickle TF via G-tube per MD using Vital AF with goal rate of 15 mL/hr to provide 360 mL total volume/day, 432 kcal, 27 g protein, and 292 mL water 2) IF TF to advance on CRRT, Vital High Protein at 75ml/hr goal to provide 1800ml volume/day, 1800 kcal, 158g protein, 1512ml water 3) additional water flush per MD on CRRT 4) PALB q Wednesday/; Daily scaled weights 5) IF to remain NPO vs EN to not advance; would benefit from TPN to meet nutrition needs day 8 poor nutrition status 6) Bowel care per MD post-op Addendum: 10/14/21 at [address] Amended: Links added.
[2021-10-14] MEDS: polyethylene glycol 3350 17gm powd pack PEG SCH (21:07)
[2021-10-14] MEDS: FENTANYL-0.9 % NACL/PF 100 ML IV PRN (21:21)
[2021-10-14] MEDS: insulin glargine (Lantus) pen - multi-dose SQ SCH (21:57)
[2021-10-14] MEDS: insulin regular, human U-100 3ml vial - multi-dose SQ SCH (22:00)
[2021-10-15] VITALS (27 sets, daily range): BP systolic 88–150; BP diastolic 28–67
[2021-10-15] MEDS: dextrose 5%-lactated ringers 1,000 ML IV SCH (00:08)
[2021-10-15] MEDS: furosemide 40mg/4ml inj IV SCH ×3 (00:12→08:00)
[2021-10-15 02:55] LABS: BASOPHILS % (AUTO) 0 % (0-1); EOSINOPHILS % (AUTO) 0 % (0-6); HEMOGLOBIN 8.1 g/dl (14.0-17.9); LYMPHOCYTES # (AUTO) 0.5 X10'3 (1.1-4.8); LYMPHOCYTES % (AUTO) 2.4 % (21-51); MEAN CORPUSCULAR HEMOGLOBIN 25.5 PG (27.0-31.0); MEAN CORPUSCULAR HGB CONC 32.4 g/dL (33.0-36.5); MEAN CORPUSCULAR VOLUME 78.7 FL (78-98); MEAN PLATELET VOLUME 8.6 FL (7.4-10.4); MONOCYTES # (AUTO) 0.7 X10'3 (0-0.9); MONOCYTES % (AUTO) 3.1 % (2-12); NEUTROPHILS # (AUTO) 20.2 X10'3 (1.8-7.7); NEUTROPHILS % (AUTO) 94.5 % (42-75); PLATELET COUNT 322 X10'3 (140-440); RED BLOOD COUNT 3.17 X10'6 (4.70-6.10); WHITE BLOOD COUNT 21.4 X10'3 (4.5-11.0)
[2021-10-15 03:01] LABS: ALBUMIN 0.9 G/DL (3.4-5.0); ANION GAP 16 (8-16); BLOOD UREA NITROGEN 76 MG/DL (7-18); BUN/CREATININE RATIO 15.7 (5.4-32.0); CHLORIDE 105 MMOL/L (99-107); CREATININE 4.84 MG/DL (0.60-1.10); GLUCOSE 225 MG/DL (70-104); PHOSPHORUS 6.2 MG/DL (2.3-4.5); POTASSIUM 3.3 MMOL/L (3.5-5.1); SODIUM 138 MMOL/L (135-145); TOTAL CARBON DIOXIDE 16.9 MMOL/L (24-32); eGFR 12 ML/MIN
[2021-10-15] MEDS: insulin regular, human U-100 3ml vial - multi-dose SQ SCH ×4 (03:12→20:39)
[2021-10-15 03:56] LABS: ABG BASE EXCESS -10.5 mmol/L (-2.0-2.0); ABG HCO3 13.9 mmol/L (22.0-26.0); ABG OXYGEN SATURATION 93.3 % (94-97); ABG PCO2 (T) 24.6 mmHg (35.0-48.0); FCOHb 0.3 % (0.0-3.9); FMetHb 0.2 % (0.0-1.5); FO2Hb 92.8 % (94-97); PATIENT TEMPERATURE 35.6; PEEP 5 cm H2O; TOTAL HEMOGLOBIN 8.8 G/dl (14.0-18.0)
[2021-10-15 04:23] LABS: LARGE PLATELETS FEW; PLATELET ESTIMATE NORMAL
[2021-10-15 04:24] LABS: ANISOCYTOSIS 2+; BURR CELLS 3+; MICROCYTOSIS 1+; POLYCHROMASIA FEW
--- NOTE | 2021-10-15 06:00 | NUR ---
Patient in room ICU 2042. I have received report from NICKIE Esquivel and had the opportunity to ask questions and assume patient care.
[2021-10-15] MEDS: Duosol 4k/NO Calcium 5,000 ML HE SCH ×11 (06:50→22:18)
[2021-10-15] MEDS: NORepinephrine 8mg/ 250ml NS 250 ML IV SCH ×3 (06:51→16:31)
[2021-10-15] MEDS: K and/or MAG REPLACEMENT MC SCH ×3 (06:55→20:00)
[2021-10-15] MEDS: VANCOMYCIN LEVEL IV SCH (06:55)
[2021-10-15] MEDS: heparin, porcine 5000 units/ml vial SQ SCH ×2 (07:49→20:21)
[2021-10-15] MEDS: clopidogrel 75mg tablet PEG SCH (07:51)
[2021-10-15] MEDS ORDERED: LIDOcaine 1% 30ml preserv. free vial IJ STA (07:58)
[2021-10-15] MEDS: PARoxetine 20mg tablet GT SCH (07:59)
[2021-10-15] MEDS: fluconazole-Diflucan 200mg/NS 100 ML IV SCH (07:59)
[2021-10-15] MEDS: hydrocortisone sod succ/PF 100mg/2ml inj. IV SCH ×3 (07:59→23:54)
[2021-10-15] MEDS: sennosides 8.6mg tablet PEG SCH ×2 (07:59→20:00)
[2021-10-15] MEDS: pantoprazole IV 40 MG in dextrose 5%-water 100 ML IV SCH (07:59)
[2021-10-15] MEDS: atorvastatin 20mg tablet GT SCH (07:59)
[2021-10-15] MEDS: lactobacillus rhamnosus 10,000 MMU CELLS/CAPSULE PEG SCH ×2 (07:59→20:21)
[2021-10-15] MEDS: topiramate 25mg tablet PEG SCH ×2 (08:00→20:21)
[2021-10-15] MEDS: piperacillin/tazo 3.375gm/50ml 50 ML IV SCH ×2 (08:00→20:22)
[2021-10-15] MEDS: acetaminophen 325mg tablet PEG SCH (08:00)
--- NOTE | 2021-10-15 09:30 | NUR ---
Gilmar placed bedside by Dr. Saravia with x1 RN there for assistance. Patient tolerated well.
[2021-10-15] MEDS: calcium chloride inj. 10,000 MG in normal saline 500ml IV soln 400 ML IV PRN (11:42)
[2021-10-15] MEDS: citrate dextrose 1000ml IV sol 1,000 ML IV PRN ×4 (11:43→23:37)
[2021-10-15] MEDS ORDERED: heparin 1,000unit/ml 10ml vial 10 ML ONE (12:26)
--- NOTE | 2021-10-15 12:30 | NUR ---
CVVH started by FABIAN Lopez RN. Patient's VSS, in no apparent distress.
--- NOTE | 2021-10-15 12:34 | NUR ---
TF Consult: Pt TF okay to advance to goal per surgeon reported by RN at rounds. Noted TF at 35ml/hr this AM not 15ml/hr prior trickle recs; TF to initiate at 55ml/hr since tolerating prior 35ml/hr rate. First BM this admit large 10/14 per EMR following prior 8 days constipation. Pt to start CVVH today per RN at rounds; TF recs below. Will monitor for TF tolerance and adjustment needs this admit. Recommendations: 1) Continuous TF via G-tube per MD using Vital High Protein at 75ml/hr goal to provide 1800ml volume/day, 1800 kcal, 158g protein, 1512ml water 2) additional water flush per MD on CRRT 3) PALB q Wednesday/; Daily scaled weights 4) Monitor for EN tolerance and adjustment needs 5) routine bowel care Addendum: 10/15/21 at [address] Amended: Links added.
--- NOTE | 2021-10-15 13:00 | NUR ---
IR bedside to place abdominal drain. Patient VSS, in no apparent distress. Tolerated well.
[2021-10-15] MEDS: HYDROmorphone 1 mg/ml syringe IV PRN ×2 (13:24→19:24)
[2021-10-15 14:11] LABS: ANION GAP 16 (8-16); BLOOD UREA NITROGEN 66 MG/DL (7-18); BUN/CREATININE RATIO 14.9 (5.4-32.0); CHLORIDE 103 MMOL/L (99-107); CREATININE 4.43 MG/DL (0.60-1.10); GLUCOSE 133 MG/DL (70-104); MAGNESIUM 1.8 MG/DL (1.5-2.4); PHOSPHORUS 5.5 MG/DL (2.3-4.5); SODIUM 136 MMOL/L (135-145); TOTAL CARBON DIOXIDE 17.4 MMOL/L (24-32); eGFR 13 ML/MIN
[2021-10-15 14:16] LABS: BASOPHILS % (AUTO) 0 % (0-1); EOSINOPHILS % (AUTO) 0.1 % (0-6); HEMATOCRIT 25.3 % (42.0-52.0); HEMOGLOBIN 8.2 g/dl (14.0-17.9); LYMPHOCYTES # (AUTO) 0.7 X10'3 (1.1-4.8); MEAN CORPUSCULAR HEMOGLOBIN 25.4 PG (27.0-31.0); MEAN CORPUSCULAR HGB CONC 32.2 g/dL (33.0-36.5); MEAN CORPUSCULAR VOLUME 78.6 FL (78-98); MEAN PLATELET VOLUME 8.7 FL (7.4-10.4); MONOCYTES # (AUTO) 0.8 X10'3 (0-0.9); MONOCYTES % (AUTO) 2.3 % (2-12); NEUTROPHILS # (AUTO) 31.9 X10'3 (1.8-7.7); NEUTROPHILS % (AUTO) 95.6 % (42-75); PLATELET COUNT 368 X10'3 (140-440); RED BLOOD COUNT 3.22 X10'6 (4.70-6.10); RED CELL DISTRIBUTION WIDTH 20.1 % (11.5-14.5)
[2021-10-15 14:21] LABS: WHITE BLOOD COUNT 33.4 X10'3 (4.5-11.0)
--- NOTE | 2021-10-15 14:50 | NUR ---
PICC placed by NICKIE Jay. Patient tolerated well, all lines to be changed and transferred to PICC. CL to be d/c'd.
[2021-10-15 15:02] LABS: ANISOCYTOSIS 3+; GIANT PLATELET FEW; MICROCYTOSIS 1+; PLATELET ESTIMATE NORMAL; TOTAL CELLS COUNTED 100
[2021-10-15 15:03] LABS: BURR CELLS 2+; ELLIPTOCYTES FEW; TEAR DROP CELLS FEW
[2021-10-15 15:12] LABS: BASOPHILS # (AUTO) 0.1 X10'3 (0-0.2); BASOPHILS % (AUTO) 0.3 % (0-1); EOSINOPHILS % (AUTO) 0 % (0-6); HEMATOCRIT 25.6 % (42.0-52.0); HEMOGLOBIN 8.1 g/dl (14.0-17.9); LYMPHOCYTES # (AUTO) 0.7 X10'3 (1.1-4.8); LYMPHOCYTES % (AUTO) 1.9 % (21-51); MEAN CORPUSCULAR HGB CONC 31.8 g/dL (33.0-36.5); MEAN CORPUSCULAR VOLUME 78.4 FL (78-98); MEAN PLATELET VOLUME 8.7 FL (7.4-10.4); MONOCYTES # (AUTO) 0.7 X10'3 (0-0.9); MONOCYTES % (AUTO) 1.8 % (2-12); NEUTROPHILS # (AUTO) 34.7 X10'3 (1.8-7.7); PLATELET COUNT 351 X10'3 (140-440); RED BLOOD COUNT 3.26 X10'6 (4.70-6.10); RED CELL DISTRIBUTION WIDTH 20.3 % (11.5-14.5)
[2021-10-15 15:16] LABS: WHITE BLOOD COUNT 36.2 X10'3 (4.5-11.0)
[2021-10-15 15:25] LABS: ALBUMIN 1.1 G/DL (3.4-5.0); ANION GAP 16 (8-16); BLOOD UREA NITROGEN 63 MG/DL (7-18); BUN/CREATININE RATIO 15.2 (5.4-32.0); CHLORIDE 103 MMOL/L (99-107); CREATININE 4.15 MG/DL (0.60-1.10); GLUCOSE 112 MG/DL (70-104); MAGNESIUM 1.9 MG/DL (1.5-2.4); PHOSPHORUS 5.2 MG/DL (2.3-4.5); SODIUM 136 MMOL/L (135-145); TOTAL CARBON DIOXIDE 17.1 MMOL/L (24-32); eGFR 14 ML/MIN
[2021-10-15] MEDS: dexmedetomidin/NS 400mcg/100ml 100 ML IV SCH (15:31)
[2021-10-15 15:39] LABS: POTASSIUM 2.8 MMOL/L (3.5-5.1)
[2021-10-15 16:20] LABS: BASOPHILS % (AUTO) 0.1 % (0-1); EOSINOPHILS % (AUTO) 0 % (0-6); HEMATOCRIT 25.8 % (42.0-52.0); HEMOGLOBIN 8.2 g/dl (14.0-17.9); LYMPHOCYTES # (AUTO) 0.7 X10'3 (1.1-4.8); LYMPHOCYTES % (AUTO) 1.7 % (21-51); MEAN CORPUSCULAR HGB CONC 31.7 g/dL (33.0-36.5); MEAN CORPUSCULAR VOLUME 78.8 FL (78-98); MEAN PLATELET VOLUME 8.7 FL (7.4-10.4); MONOCYTES # (AUTO) 1.2 X10'3 (0-0.9); MONOCYTES % (AUTO) 3.1 % (2-12); NEUTROPHILS # (AUTO) 37.3 X10'3 (1.8-7.7); NEUTROPHILS % (AUTO) 95.1 % (42-75); PLATELET COUNT 329 X10'3 (140-440); RED BLOOD COUNT 3.27 X10'6 (4.70-6.10); RED CELL DISTRIBUTION WIDTH 20.3 % (11.5-14.5)
[2021-10-15 16:22] LABS: ALBUMIN 1.1 G/DL (3.4-5.0); ANION GAP 16 (8-16); BLOOD UREA NITROGEN 60 MG/DL (7-18); CHLORIDE 104 MMOL/L (99-107); CREATININE 3.99 MG/DL (0.60-1.10); GLUCOSE 134 MG/DL (70-104); MAGNESIUM 1.9 MG/DL (1.5-2.4); PHOSPHORUS 5.1 MG/DL (2.3-4.5); POTASSIUM 3.2 MMOL/L (3.5-5.1); SODIUM 136 MMOL/L (135-145); TOTAL CARBON DIOXIDE 16.1 MMOL/L (24-32); WHITE BLOOD COUNT 39.3 X10'3 (4.5-11.0); eGFR 15 ML/MIN
--- NOTE | 2021-10-15 17:00 | NUR ---
Dr. Saravia aware of potassium and WBC. No new orders at this time.
[2021-10-15 17:18] LABS: BASOPHILS # (AUTO) 0.1 X10'3 (0-0.2); BASOPHILS % (AUTO) 0.2 % (0-1); EOSINOPHILS % (AUTO) 0 % (0-6); HEMATOCRIT 25.1 % (42.0-52.0); HEMOGLOBIN 7.9 g/dl (14.0-17.9); LYMPHOCYTES # (AUTO) 0.7 X10'3 (1.1-4.8); LYMPHOCYTES % (AUTO) 1.7 % (21-51); MEAN CORPUSCULAR HEMOGLOBIN 24.8 PG (27.0-31.0); MEAN CORPUSCULAR HGB CONC 31.6 g/dL (33.0-36.5); MEAN CORPUSCULAR VOLUME 78.4 FL (78-98); MEAN PLATELET VOLUME 8.4 FL (7.4-10.4); MONOCYTES # (AUTO) 1.1 X10'3 (0-0.9); MONOCYTES % (AUTO) 2.6 % (2-12); NEUTROPHILS # (AUTO) 39.9 X10'3 (1.8-7.7); NEUTROPHILS % (AUTO) 95.5 % (42-75); PLATELET COUNT 362 X10'3 (140-440); RED CELL DISTRIBUTION WIDTH 20.1 % (11.5-14.5)
[2021-10-15 17:21] LABS: WHITE BLOOD COUNT 41.8 X10'3 (4.5-11.0)
[2021-10-15 17:25] LABS: ALBUMIN 1.1 G/DL (3.4-5.0); ANION GAP 16 (8-16); BLOOD UREA NITROGEN 60 MG/DL (7-18); BUN/CREATININE RATIO 15.7 (5.4-32.0); CHLORIDE 103 MMOL/L (99-107); CREATININE 3.81 MG/DL (0.60-1.10); GLUCOSE 143 MG/DL (70-104); MAGNESIUM 1.9 MG/DL (1.5-2.4); PHOSPHORUS 4.9 MG/DL (2.3-4.5); SODIUM 136 MMOL/L (135-145); TOTAL CARBON DIOXIDE 17.1 MMOL/L (24-32); eGFR 16 ML/MIN
--- NOTE | 2021-10-15 18:27 | NUR ---
Problems reprioritized. Patient report given, questions answered & plan of care reviewed with NICKIE Holt.
--- NOTE | 2021-10-15 18:30 | NUR ---
Patient in room ICU 2042. I have received report from Ashley FU and had the opportunity to ask questions and assume patient care.
[2021-10-15] MEDS: potassium Cl 20mEq/100mL bag 100 ML IV PRN ×3 (18:36→23:44)
[2021-10-15] MEDS: polyethylene glycol 3350 17gm powd pack PEG SCH (20:14)
[2021-10-15] MEDS: insulin glargine (Lantus) pen - multi-dose SQ SCH (20:37)
[2021-10-15 23:36] LABS: BASOPHILS % (AUTO) 0 % (0-1); EOSINOPHILS % (AUTO) 0.1 % (0-6); HEMOGLOBIN 7.2 g/dl (14.0-17.9); LYMPHOCYTES # (AUTO) 0.7 X10'3 (1.1-4.8); LYMPHOCYTES % (AUTO) 1.9 % (21-51); MEAN CORPUSCULAR HEMOGLOBIN 25.6 PG (27.0-31.0); MEAN CORPUSCULAR HGB CONC 33.4 g/dL (33.0-36.5); MEAN CORPUSCULAR VOLUME 76.8 FL (78-98); MEAN PLATELET VOLUME 8.4 FL (7.4-10.4); MONOCYTES # (AUTO) 0.9 X10'3 (0-0.9); MONOCYTES % (AUTO) 2.5 % (2-12); NEUTROPHILS # (AUTO) 35.6 X10'3 (1.8-7.7); NEUTROPHILS % (AUTO) 95.5 % (42-75); PLATELET COUNT 321 X10'3 (140-440); RED BLOOD COUNT 2.82 X10'6 (4.70-6.10); RED CELL DISTRIBUTION WIDTH 19.7 % (11.5-14.5)
[2021-10-15 23:38] LABS: ALBUMIN 1.1 G/DL (3.4-5.0); ANION GAP 17 (8-16); BLOOD UREA NITROGEN 53 MG/DL (7-18); BUN/CREATININE RATIO 16.6 (5.4-32.0); CHLORIDE 104 MMOL/L (99-107); GLUCOSE 175 MG/DL (70-104); MAGNESIUM 1.8 MG/DL (1.5-2.4); PHOSPHORUS 3.6 MG/DL (2.3-4.5); POTASSIUM 3.2 MMOL/L (3.5-5.1); SODIUM 141 MMOL/L (135-145); eGFR 19 ML/MIN
[2021-10-15 23:54] LABS: WHITE BLOOD COUNT 37.3 X10'3 (4.5-11.0)
[2021-10-15 23:55] LABS: HEMATOCRIT 21.6 % (42.0-52.0)
[2021-10-16] VITALS (26 sets, daily range): BP systolic 109–156; BP diastolic 43–64
--- NOTE | 2021-10-16 | NUR ---
ICU Tele Med MD notified d/t receiving critical WBC which are on down from previous numbers and HCT. No new orders received at this time. PT's VSS with no change in Levo rate thus far in shift. Will continue to monitor.
[2021-10-16] MEDS: potassium Cl 20mEq/100mL bag 100 ML IV PRN ×5 (00:46→20:12)
[2021-10-16 01:24] LABS: TOTAL CELLS COUNTED 100
[2021-10-16 01:25] LABS: ANISOCYTOSIS 2+; BURR CELLS 2+; LARGE PLATELETS FEW; MICROCYTOSIS 1+; PLATELET ESTIMATE NORMAL; POLYCHROMASIA FEW
[2021-10-16 01:27] LABS: SCHISTOCYTES FEW
[2021-10-16 02:21] LABS: ABG HCO3 20.3 mmol/L (22.0-26.0); ABG OXYGEN SATURATION 96.7 % (94-97); ABG PO2 (T) 89.3 mmHg (75.0-100.0); FCOHb 0.3 % (0.0-3.9); FMetHb 0.6 % (0.0-1.5); FO2Hb 95.8 % (94-97); PEEP 5 cm H2O; TOTAL HEMOGLOBIN 7.7 G/dl (14.0-18.0)
[2021-10-16] MEDS: dexmedetomidin/NS 400mcg/100ml 100 ML IV SCH ×2 (02:30→09:39)
[2021-10-16] MEDS: insulin regular, human U-100 3ml vial - multi-dose SQ SCH ×4 (02:32→20:40)
[2021-10-16] MEDS: HYDROmorphone 1 mg/ml syringe IV PRN ×4 (02:39→22:56)
[2021-10-16] MEDS: calcium chloride inj. 10,000 MG in normal saline 500ml IV soln 400 ML IV PRN ×2 (03:17→16:48)
[2021-10-16] MEDS: citrate dextrose 1000ml IV sol 1,000 ML IV PRN ×5 (03:17→22:56)
[2021-10-16 05:55] LABS: BASOPHILS % (AUTO) 0.1 % (0-1); EOSINOPHILS % (AUTO) 0.1 % (0-6); LYMPHOCYTES # (AUTO) 0.7 X10'3 (1.1-4.8); LYMPHOCYTES % (AUTO) 2.4 % (21-51); MEAN CORPUSCULAR HGB CONC 32.5 g/dL (33.0-36.5); MEAN PLATELET VOLUME 8.7 FL (7.4-10.4); MONOCYTES # (AUTO) 0.7 X10'3 (0-0.9); MONOCYTES % (AUTO) 2.3 % (2-12); NEUTROPHILS # (AUTO) 26.5 X10'3 (1.8-7.7); NEUTROPHILS % (AUTO) 95.1 % (42-75); PLATELET COUNT 294 X10'3 (140-440); RED BLOOD COUNT 2.62 X10'6 (4.70-6.10); RED CELL DISTRIBUTION WIDTH 20.1 % (11.5-14.5)
[2021-10-16 05:58] LABS: ALBUMIN 1.1 G/DL (3.4-5.0); ANION GAP 16 (8-16); BLOOD UREA NITROGEN 45 MG/DL (7-18); BUN/CREATININE RATIO 16.5 (5.4-32.0); CALCIUM 8.9 MG/DL (8.5-10.1); CHLORIDE 105 MMOL/L (99-107); CREATININE 2.72 MG/DL (0.60-1.10); GLUCOSE 181 MG/DL (70-104); MAGNESIUM 1.8 MG/DL (1.5-2.4); PHOSPHORUS 2.7 MG/DL (2.3-4.5); POTASSIUM 3.3 MMOL/L (3.5-5.1); PREALBUMIN 13.6 MG/DL (19-36); SODIUM 143 MMOL/L (135-145); TOTAL CARBON DIOXIDE 22.4 MMOL/L (24-32); eGFR 23 ML/MIN
[2021-10-16] MEDS: NORepinephrine 8mg/ 250ml NS 250 ML IV SCH ×2 (06:04→06:55)
[2021-10-16 06:08] LABS: HEMATOCRIT 20.1 % (42.0-52.0); HEMOGLOBIN 6.5 g/dl (14.0-17.9); WHITE BLOOD COUNT 27.9 X10'3 (4.5-11.0)
--- NOTE | 2021-10-16 06:30 | NUR ---
Patient in room ICU 2042. I have received report from yesi and had the opportunity to ask questions and assume patient care.
--- NOTE | 2021-10-16 06:30 | NUR ---
Problems reprioritized. Patient report given, questions answered & plan of care reviewed with Sammie FU.
--- NOTE | 2021-10-16 06:36 | NUR ---
ICU Tele-Med MD notified after receiving critical WBC, HGB/HCT. PT has not been transfused, order received for Type and Screen. PT's VSS and levo have not needed to be titrated up. Report has been given to oncoming RN.
[2021-10-16] MEDS: Duosol 4k/NO Calcium 5,000 ML HE SCH ×6 (06:55→21:14)
[2021-10-16 07:23] LABS: TOTAL CELLS COUNTED 100
[2021-10-16 07:24] LABS: ANISOCYTOSIS 3+; MICROCYTOSIS 1+; PLATELET ESTIMATE NORMAL
[2021-10-16] MEDS: K and/or MAG REPLACEMENT MC SCH ×2 (08:00→19:55)
[2021-10-16] MEDS: lactobacillus rhamnosus 10,000 MMU CELLS/CAPSULE PEG SCH ×2 (09:35→20:08)
[2021-10-16] MEDS: topiramate 25mg tablet PEG SCH ×2 (09:35→20:08)
[2021-10-16] MEDS: sennosides 8.6mg tablet PEG SCH ×2 (09:35→20:00)
[2021-10-16] MEDS: PARoxetine 20mg tablet GT SCH (09:36)
[2021-10-16] MEDS: atorvastatin 20mg tablet GT SCH (09:36)
[2021-10-16] MEDS: clopidogrel 75mg tablet PEG SCH (09:36)
[2021-10-16] MEDS: heparin, porcine 5000 units/ml vial SQ SCH ×2 (09:37→20:08)
[2021-10-16] MEDS: fluconazole-Diflucan 200mg/NS 100 ML IV SCH (09:38)
[2021-10-16] MEDS: piperacillin/tazo 3.375gm/50ml 50 ML IV SCH ×2 (09:38→20:08)
[2021-10-16] MEDS: pantoprazole IV 40 MG in dextrose 5%-water 100 ML IV SCH (09:38)
[2021-10-16] MEDS: hydrocortisone sod succ/PF 100mg/2ml inj. IV SCH ×2 (09:38→16:48)
[2021-10-16] MEDS: PEG 400/HYPROMELLOSE/GLYCERIN 15ml bottle EACHEYE PRN ×2 (09:39→17:08)
[2021-10-16] MEDS: acetaminophen 325mg tablet PEG SCH (10:30)
[2021-10-16 12:43] LABS: ALBUMIN 1.1 G/DL (3.4-5.0); ANION GAP 10 (8-16); BLOOD UREA NITROGEN 39 MG/DL (7-18); BUN/CREATININE RATIO 16.8 (5.4-32.0); CHLORIDE 107 MMOL/L (99-107); CREATININE 2.32 MG/DL (0.60-1.10); GLUCOSE 145 MG/DL (70-104); MAGNESIUM 1.8 MG/DL (1.5-2.4); PHOSPHORUS 2.5 MG/DL (2.3-4.5); POTASSIUM 3.5 MMOL/L (3.5-5.1); SODIUM 144 MMOL/L (135-145); VANCOMYCIN,RANDOM 10.5 UG/ML; eGFR 28 ML/MIN
[2021-10-16] MEDS: vancomycin/NS 1 GM ADD-VANTAGE 250 ML X 1 DOSE IV SCH (15:07)
--- NOTE | 2021-10-16 16:30 | NUR ---
replaced k, 2u prbc complete.pt opens eyes- doesnt follow commands. little output from jenny drains. update to cameron. update to
[2021-10-16 18:02] LABS: BASOPHILS % (AUTO) 0.1 % (0-1); EOSINOPHILS % (AUTO) 0.1 % (0-6); HEMATOCRIT 25.1 % (42.0-52.0); HEMOGLOBIN 8.4 g/dl (14.0-17.9); LYMPHOCYTES # (AUTO) 0.7 X10'3 (1.1-4.8); LYMPHOCYTES % (AUTO) 3.2 % (21-51); MEAN CORPUSCULAR HEMOGLOBIN 27.1 PG (27.0-31.0); MEAN CORPUSCULAR HGB CONC 33.5 g/dL (33.0-36.5); MEAN CORPUSCULAR VOLUME 80.8 FL (78-98); MEAN PLATELET VOLUME 8.7 FL (7.4-10.4); MONOCYTES # (AUTO) 0.6 X10'3 (0-0.9); MONOCYTES % (AUTO) 2.8 % (2-12); NEUTROPHILS # (AUTO) 19.2 X10'3 (1.8-7.7); NEUTROPHILS % (AUTO) 93.8 % (42-75); PLATELET COUNT 188 X10'3 (140-440); RED CELL DISTRIBUTION WIDTH 18.9 % (11.5-14.5); WHITE BLOOD COUNT 20.4 X10'3 (4.5-11.0)
[2021-10-16 18:09] LABS: GLUCOSE 147 MG/DL (70-104); SODIUM 144 MMOL/L (135-145)
[2021-10-16 18:10] LABS: ALBUMIN 1.1 G/DL (3.4-5.0); ANION GAP 11 (8-16); BLOOD UREA NITROGEN 36 MG/DL (7-18); BUN/CREATININE RATIO 17.3 (5.4-32.0); CHLORIDE 108 MMOL/L (99-107); CREATININE 2.08 MG/DL (0.60-1.10); MAGNESIUM 1.8 MG/DL (1.5-2.4); PHOSPHORUS 2.1 MG/DL (2.3-4.5); POTASSIUM 3.3 MMOL/L (3.5-5.1); TOTAL CARBON DIOXIDE 25.3 MMOL/L (24-32); eGFR 32 ML/MIN
--- NOTE | 2021-10-16 18:30 | NUR ---
Patient in room ICU 2042. I have received report from Sammie FU and had the opportunity to ask questions and assume patient care.
[2021-10-16] MEDS: polyethylene glycol 3350 17gm powd pack PEG SCH (20:09)
[2021-10-16] MEDS: insulin glargine (Lantus) pen - multi-dose SQ SCH (20:41)
[2021-10-16 20:59] LABS: PLATELET ESTIMATE NORMAL; TOTAL CELLS COUNTED 100
[2021-10-16 21:00] LABS: BURR CELLS 1+; LARGE PLATELETS FEW; MICROCYTOSIS FEW
[2021-10-16 21:06] LABS: ANISOCYTOSIS 2+
[2021-10-16] MEDS: sodium phosphate inj. 30 MMOL in normal saline 250ml IV soln 250 ML IV PRN (21:38)
[2021-10-17] VITALS (28 sets, daily range): BP systolic 88–159; BP diastolic 43–67
[2021-10-17 00:04] LABS: BASOPHILS % (AUTO) 0.1 % (0-1); EOSINOPHILS % (AUTO) 0.2 % (0-6); HEMATOCRIT 23.6 % (42.0-52.0); HEMOGLOBIN 7.8 g/dl (14.0-17.9); LYMPHOCYTES # (AUTO) 0.6 X10'3 (1.1-4.8); LYMPHOCYTES % (AUTO) 2.8 % (21-51); MEAN CORPUSCULAR HGB CONC 33.1 g/dL (33.0-36.5); MEAN CORPUSCULAR VOLUME 81.5 FL (78-98); MEAN PLATELET VOLUME 8.9 FL (7.4-10.4); MONOCYTES # (AUTO) 0.7 X10'3 (0-0.9); MONOCYTES % (AUTO) 3.6 % (2-12); NEUTROPHILS # (AUTO) 18.4 X10'3 (1.8-7.7); NEUTROPHILS % (AUTO) 93.3 % (42-75); PLATELET COUNT 180 X10'3 (140-440); RED BLOOD COUNT 2.89 X10'6 (4.70-6.10); RED CELL DISTRIBUTION WIDTH 18.9 % (11.5-14.5); WHITE BLOOD COUNT 19.7 X10'3 (4.5-11.0)
[2021-10-17] MEDS: hydrocortisone sod succ/PF 100mg/2ml inj. IV SCH ×3 (00:16→17:39)
[2021-10-17 00:26] LABS: ANION GAP 9 (8-16); BLOOD UREA NITROGEN 32 MG/DL (7-18); BUN/CREATININE RATIO 17.6 (5.4-32.0); CALCIUM 8.9 MG/DL (8.5-10.1); CHLORIDE 108 MMOL/L (99-107); CREATININE 1.82 MG/DL (0.60-1.10); GLUCOSE 118 MG/DL (70-104); PHOSPHORUS 2.5 MG/DL (2.3-4.5); POTASSIUM 3.7 MMOL/L (3.5-5.1); SODIUM 145 MMOL/L (135-145); TOTAL CARBON DIOXIDE 27.9 MMOL/L (24-32); eGFR 37 ML/MIN
[2021-10-17] MEDS: Duosol 4k/NO Calcium 5,000 ML HE SCH ×7 (00:48→19:51)
[2021-10-17] MEDS: dexmedetomidin/NS 400mcg/100ml 100 ML IV SCH ×2 (00:50→09:30)
[2021-10-17 01:30] LABS: MAGNESIUM 1.7 MG/DL (1.5-2.4)
[2021-10-17] MEDS: citrate dextrose 1000ml IV sol 1,000 ML IV PRN ×3 (02:30→18:58)
[2021-10-17] MEDS: HYDROmorphone 1 mg/ml syringe IV PRN ×3 (02:31→20:57)
[2021-10-17 03:18] LABS: LARGE PLATELETS FEW; PLATELET ESTIMATE NORMAL
[2021-10-17 03:19] LABS: ANISOCYTOSIS 2+; ELLIPTOCYTES FEW; POLYCHROMASIA FEW
[2021-10-17 03:20] LABS: BURR CELLS FEW
[2021-10-17] MEDS: insulin regular, human U-100 3ml vial - multi-dose SQ SCH ×4 (03:43→20:33)
[2021-10-17 04:04] LABS: ABG BASE EXCESS 3.9 mmol/L (-2.0-2.0); ABG HCO3 27.4 mmol/L (22.0-26.0); ABG PCO2 (T) 35.9 mmHg (35.0-48.0); ABG PO2 (T) 91.4 mmHg (75.0-100.0); FCOHb 0.3 % (0.0-3.9); FMetHb 0.2 % (0.0-1.5); FO2Hb 96.5 % (94-97); PATIENT TEMPERATURE 36.5; PEEP 5 cm H2O; TOTAL HEMOGLOBIN 8.5 G/dl (14.0-18.0)
[2021-10-17 06:13] LABS: BASOPHILS % (AUTO) 0.1 % (0-1); EOSINOPHILS % (AUTO) 0.1 % (0-6); HEMATOCRIT 22.4 % (42.0-52.0); HEMOGLOBIN 7.5 g/dl (14.0-17.9); LYMPHOCYTES # (AUTO) 0.6 X10'3 (1.1-4.8); LYMPHOCYTES % (AUTO) 2.7 % (21-51); MEAN CORPUSCULAR HEMOGLOBIN 27.2 PG (27.0-31.0); MEAN CORPUSCULAR HGB CONC 33.4 g/dL (33.0-36.5); MEAN CORPUSCULAR VOLUME 81.3 FL (78-98); MEAN PLATELET VOLUME 9.3 FL (7.4-10.4); MONOCYTES # (AUTO) 0.6 X10'3 (0-0.9); MONOCYTES % (AUTO) 2.8 % (2-12); NEUTROPHILS # (AUTO) 20.7 X10'3 (1.8-7.7); NEUTROPHILS % (AUTO) 94.3 % (42-75); PLATELET COUNT 181 X10'3 (140-440); RED BLOOD COUNT 2.75 X10'6 (4.70-6.10); RED CELL DISTRIBUTION WIDTH 18.8 % (11.5-14.5); WHITE BLOOD COUNT 21.9 X10'3 (4.5-11.0)
--- NOTE | 2021-10-17 06:30 | NUR ---
Patient in room ICU 2042. I have received report from yesi and had the opportunity to ask questions and assume patient care.
--- NOTE | 2021-10-17 06:34 | NUR ---
Problems reprioritized. Patient report given, questions answered & plan of care reviewed with Sammie FU.
[2021-10-17 06:49] LABS: ALBUMIN 1.1 G/DL (3.4-5.0); ANION GAP 6 (8-16); BLOOD UREA NITROGEN 30 MG/DL (7-18); CALCIUM 8.7 MG/DL (8.5-10.1); CHLORIDE 105 MMOL/L (99-107); CREATININE 1.67 MG/DL (0.60-1.10); GLUCOSE 154 MG/DL (70-104); MAGNESIUM 1.6 MG/DL (1.5-2.4); PHOSPHORUS 2.9 MG/DL (2.3-4.5); POTASSIUM 3.5 MMOL/L (3.5-5.1); SODIUM 140 MMOL/L (135-145); TOTAL CARBON DIOXIDE 28.6 MMOL/L (24-32); eGFR 41 ML/MIN
[2021-10-17] MEDS: sennosides 8.6mg tablet PEG SCH (06:53)
[2021-10-17 06:59] LABS: ANISOCYTOSIS 2+; HYPOCHROMASIA 1+; PLATELET ESTIMATE NORMAL; POLYCHROMASIA 1+
[2021-10-17 07:00] LABS: BURR CELLS 1+; ELLIPTOCYTES 1+; SCHISTOCYTES FEW; TARGET CELLS FEW
[2021-10-17] MEDS: K and/or MAG REPLACEMENT MC SCH ×2 (08:00→20:00)
[2021-10-17] MEDS: pantoprazole IV 40 MG in dextrose 5%-water 100 ML IV SCH (09:28)
[2021-10-17] MEDS: clopidogrel 75mg tablet PEG SCH (09:30)
[2021-10-17] MEDS: acetaminophen 325mg tablet PEG SCH (09:30)
[2021-10-17] MEDS: topiramate 25mg tablet PEG SCH ×2 (09:30→20:18)
[2021-10-17] MEDS: atorvastatin 20mg tablet GT SCH (09:30)
[2021-10-17] MEDS: lactobacillus rhamnosus 10,000 MMU CELLS/CAPSULE PEG SCH ×2 (09:30→20:17)
[2021-10-17] MEDS: heparin, porcine 5000 units/ml vial SQ SCH (09:30)
[2021-10-17] MEDS: PARoxetine 20mg tablet GT SCH (09:30)
[2021-10-17] MEDS: fluconazole-Diflucan 200mg/NS 100 ML IV SCH (09:31)
[2021-10-17] MEDS: piperacillin/tazo 3.375gm/50ml 50 ML IV SCH ×2 (09:32→20:17)
[2021-10-17] MEDS: calcium chloride inj. 10,000 MG in normal saline 500ml IV soln 400 ML IV PRN (09:33)
--- NOTE | 2021-10-17 10:00 | NUR ---
update to dr Jorge cobb: labs, neuro, vent- weaning parameter
[2021-10-17] MEDS ORDERED: polyethylene glycol 3350 17gm powd pack PEG PRN (11:31)
[2021-10-17 11:48] LABS: BASOPHILS % (AUTO) 0.1 % (0-1); EOSINOPHILS % (AUTO) 0.1 % (0-6); LYMPHOCYTES # (AUTO) 1.1 X10'3 (1.1-4.8); LYMPHOCYTES % (AUTO) 3.9 % (21-51); MEAN CORPUSCULAR HEMOGLOBIN 27.1 PG (27.0-31.0); MEAN CORPUSCULAR HGB CONC 33.7 g/dL (33.0-36.5); MEAN CORPUSCULAR VOLUME 80.4 FL (78-98); MEAN PLATELET VOLUME 9.1 FL (7.4-10.4); MONOCYTES # (AUTO) 0.9 X10'3 (0-0.9); MONOCYTES % (AUTO) 3.4 % (2-12); NEUTROPHILS % (AUTO) 92.5 % (42-75); PLATELET COUNT 198 X10'3 (140-440); RED BLOOD COUNT 2.32 X10'6 (4.70-6.10); RED CELL DISTRIBUTION WIDTH 18.9 % (11.5-14.5)
[2021-10-17 11:53] LABS: WHITE BLOOD COUNT 28.1 X10'3 (4.5-11.0)
[2021-10-17 11:54] LABS: HEMATOCRIT 18.6 % (42.0-52.0); HEMOGLOBIN 6.3 g/dl (14.0-17.9)
[2021-10-17 12:00] LABS: ALBUMIN 1.1 G/DL (3.4-5.0); ANION GAP 8 (8-16); BLOOD UREA NITROGEN 33 MG/DL (7-18); BUN/CREATININE RATIO 21.2 (5.4-32.0); CALCIUM 8.6 MG/DL (8.5-10.1); CHLORIDE 107 MMOL/L (99-107); CREATININE 1.56 MG/DL (0.60-1.10); GLUCOSE 131 MG/DL (70-104); MAGNESIUM 3.1 MG/DL (1.5-2.4); PHOSPHORUS 2.3 MG/DL (2.3-4.5); POTASSIUM 3.5 MMOL/L (3.5-5.1); SODIUM 143 MMOL/L (135-145); TOTAL CARBON DIOXIDE 28.4 MMOL/L (24-32); eGFR 45 ML/MIN
--- NOTE | 2021-10-17 12:40 | NUR ---
F/u 10/17: Pt tolerating Vital High Protein TF at goal GRV WNL though Vital High Protein out of stock starting tomorrow. RD notified MD of updated TF recs below and d/w RN until Vital High Protein restocked. TF Consult: Pt TF okay to advance to goal per surgeon reported by RN at rounds. Noted TF at 35ml/hr this AM not 15ml/hr prior trickle recs; TF to initiate at 55ml/hr since tolerating prior 35ml/hr rate. First BM this admit large 10/14 per EMR following prior 8 days constipation. Pt to start CVVH today per RN at rounds; TF recs below. Will monitor for TF tolerance and adjustment needs this admit. Recommendations: 1) Continuous TF via G-tube per MD using Vital High Protein at 75ml/hr goal to provide 1800ml volume/day, 1800 kcal, 158g protein, 1512ml water 2) IF Vital High Protein TF not available substitute using at Vital AF at 75ml/hr goal would provide 1800ml volume/day, 2160 kcals, 1458ml water, and 135g protein. 3) additional water flush per MD on CRRT 4) PALB q Wednesday/; Daily scaled weights 5) Monitor for EN tolerance and adjustment needs 6) routine bowel care Addendum: 10/17/21 at [address] Amended: Links added.
[2021-10-17] MEDS: NORepinephrine 8mg/ 250ml NS 250 ML IV SCH (12:41)
[2021-10-17] MEDS: vancomycin/NS 1 GM ADD-VANTAGE 250 ML X 1 DOSE IV SCH (14:52)
--- NOTE | 2021-10-17 16:00 | NUR ---
dr vargas notified of decreased hgb, weaning parameters. 1 unit of prbc infused. titrating citrate down according to co2. mag replaced. update to dr verma- deshaun to melonie jenny drain from or- done. observed abd incision- ok drainage. ir jenny flushed by dr shannon. wound care nurse here- observed wounds. state that they are much better. cvvh filter changed by hd nurse for routine change.
[2021-10-17 18:19] LABS: EOSINOPHILS % (AUTO) 0 % (0-6); MEAN PLATELET VOLUME 9.8 FL (7.4-10.4)
[2021-10-17 18:21] LABS: BASOPHILS % (AUTO) 0.1 % (0-1); HEMATOCRIT 23.7 % (42.0-52.0); HEMOGLOBIN 7.9 g/dl (14.0-17.9); LYMPHOCYTES # (AUTO) 1.2 X10'3 (1.1-4.8); LYMPHOCYTES % (AUTO) 3.5 % (21-51); MEAN CORPUSCULAR HGB CONC 33.5 g/dL (33.0-36.5); MEAN CORPUSCULAR VOLUME 83.6 FL (78-98); MONOCYTES # (AUTO) 1.6 X10'3 (0-0.9); MONOCYTES % (AUTO) 4.4 % (2-12); NEUTROPHILS # (AUTO) 32.9 X10'3 (1.8-7.7); PLATELET COUNT 192 X10'3 (140-440); RED BLOOD COUNT 2.83 X10'6 (4.70-6.10); RED CELL DISTRIBUTION WIDTH 18.3 % (11.5-14.5)
[2021-10-17 18:25] LABS: ALBUMIN 1.3 G/DL (3.4-5.0); ANION GAP 8 (8-16); BLOOD UREA NITROGEN 34 MG/DL (7-18); BUN/CREATININE RATIO 22.2 (5.4-32.0); CALCIUM 8.6 MG/DL (8.5-10.1); CHLORIDE 107 MMOL/L (99-107); CREATININE 1.53 MG/DL (0.60-1.10); GLUCOSE 127 MG/DL (70-104); PHOSPHORUS 2.2 MG/DL (2.3-4.5); SODIUM 142 MMOL/L (135-145); TOTAL CARBON DIOXIDE 26.6 MMOL/L (24-32); WHITE BLOOD COUNT 35.7 X10'3 (4.5-11.0); eGFR 46 ML/MIN
--- NOTE | 2021-10-17 18:30 | NUR ---
Patient in room ICU 2042. I have received report from Sammie FU and had the opportunity to ask questions and assume patient care.
--- NOTE | 2021-10-17 19:00 | NUR ---
ICU Tele-Med MD notified d/t receiving critical WBC. No new orders received at this time, PT is Afebrile and on multiple ABX. Will continue to monitor.
[2021-10-17] MEDS: sodium phosphate inj. 30 MMOL in normal saline 250ml IV soln 250 ML IV PRN (19:50)
[2021-10-17] MEDS: insulin glargine (Lantus) pen - multi-dose SQ SCH (20:29)
[2021-10-17 23:48] LABS: MEAN CORPUSCULAR VOLUME 83.8 FL (78-98); MEAN PLATELET VOLUME 9.6 FL (7.4-10.4)
[2021-10-17 23:49] LABS: BASOPHILS % (AUTO) 0.1 % (0-1); EOSINOPHILS % (AUTO) 0.1 % (0-6); LYMPHOCYTES # (AUTO) 1.5 X10'3 (1.1-4.8); LYMPHOCYTES % (AUTO) 4.4 % (21-51); MEAN CORPUSCULAR HEMOGLOBIN 28.1 PG (27.0-31.0); MEAN CORPUSCULAR HGB CONC 33.5 g/dL (33.0-36.5); MONOCYTES # (AUTO) 1.8 X10'3 (0-0.9); MONOCYTES % (AUTO) 5.3 % (2-12); NEUTROPHILS # (AUTO) 30.2 X10'3 (1.8-7.7); NEUTROPHILS % (AUTO) 90.1 % (42-75); PLATELET COUNT 198 X10'3 (140-440); RED BLOOD COUNT 2.21 X10'6 (4.70-6.10)
[2021-10-17 23:51] LABS: HEMATOCRIT 18.5 % (42.0-52.0); HEMOGLOBIN 6.2 g/dl (14.0-17.9); WHITE BLOOD COUNT 33.5 X10'3 (4.5-11.0)
[2021-10-17 23:58] LABS: ALBUMIN 1.2 G/DL (3.4-5.0); ANION GAP 6 (8-16); BLOOD UREA NITROGEN 33 MG/DL (7-18); BUN/CREATININE RATIO 22.3 (5.4-32.0); CALCIUM 8.4 MG/DL (8.5-10.1); CHLORIDE 107 MMOL/L (99-107); CREATININE 1.48 MG/DL (0.60-1.10); GLUCOSE 145 MG/DL (70-104); MAGNESIUM 2.2 MG/DL (1.5-2.4); PHOSPHORUS 4.8 MG/DL (2.3-4.5); POTASSIUM 4.2 MMOL/L (3.5-5.1); SODIUM 142 MMOL/L (135-145); TOTAL CARBON DIOXIDE 28.6 MMOL/L (24-32); eGFR 47 ML/MIN
[2021-10-18] VITALS (36 sets, daily range): BP systolic 82–159; BP diastolic 42–65
--- NOTE | 2021-10-18 00:15 | NUR ---
ICU Tele-Med MD notified after receiving critical WBC and H&H. Orders received to transfuse 1 unit PRBC's as well as get occult stool sample. Will continue to monitor.
[2021-10-18] MEDS: hydrocortisone sod succ/PF 100mg/2ml inj. IV SCH ×3 (01:10→20:27)
[2021-10-18] MEDS: dexmedetomidin/NS 400mcg/100ml 100 ML IV SCH ×3 (01:11→22:30)
[2021-10-18] MEDS: HYDROmorphone 1 mg/ml syringe IV PRN ×2 (01:58→08:33)
[2021-10-18] MEDS: insulin regular, human U-100 3ml vial - multi-dose SQ SCH ×4 (02:21→20:53)
[2021-10-18] MEDS: calcium chloride inj. 10,000 MG in normal saline 500ml IV soln 400 ML IV PRN (03:58)
[2021-10-18] MEDS: Duosol 4k/NO Calcium 5,000 ML HE SCH ×6 (04:13→14:54)
[2021-10-18 04:14] LABS: ABG BASE EXCESS 0.2 mmol/L (-2.0-2.0); ABG HCO3 23.6 mmol/L (22.0-26.0); ABG OXYGEN SATURATION 97.7 % (94-97); ABG PCO2 (T) 33.2 mmHg (35.0-48.0); ABG PO2 (T) 115.3 mmHg (75.0-100.0); FCOHb 0.3 % (0.0-3.9); FMetHb 0.7 % (0.0-1.5); FO2Hb 96.7 % (94-97); PATIENT TEMPERATURE 37.1; PEEP 5 cm H2O; TOTAL HEMOGLOBIN 8.7 G/dl (14.0-18.0)
[2021-10-18 06:00] LABS: BASOPHILS % (AUTO) 0.1 % (0-1); EOSINOPHILS % (AUTO) 0.1 % (0-6); HEMATOCRIT 23.9 % (42.0-52.0); HEMOGLOBIN 7.9 g/dl (14.0-17.9); LYMPHOCYTES # (AUTO) 1.6 X10'3 (1.1-4.8); LYMPHOCYTES % (AUTO) 4.4 % (21-51); MEAN CORPUSCULAR HGB CONC 33.2 g/dL (33.0-36.5); MEAN CORPUSCULAR VOLUME 84.4 FL (78-98); MONOCYTES # (AUTO) 1.6 X10'3 (0-0.9); MONOCYTES % (AUTO) 4.6 % (2-12); NEUTROPHILS # (AUTO) 32.2 X10'3 (1.8-7.7); NEUTROPHILS % (AUTO) 90.8 % (42-75); PLATELET COUNT 176 X10'3 (140-440); RED BLOOD COUNT 2.84 X10'6 (4.70-6.10); RED CELL DISTRIBUTION WIDTH 16.7 % (11.5-14.5)
[2021-10-18 06:01] LABS: ALBUMIN 1.3 G/DL (3.4-5.0); ANION GAP 6 (8-16); BLOOD UREA NITROGEN 31 MG/DL (7-18); BUN/CREATININE RATIO 21.7 (5.4-32.0); CALCIUM 8.9 MG/DL (8.5-10.1); CHLORIDE 105 MMOL/L (99-107); CREATININE 1.43 MG/DL (0.60-1.10); GLUCOSE 170 MG/DL (70-104); MAGNESIUM 2.1 MG/DL (1.5-2.4); PHOSPHORUS 3.7 MG/DL (2.3-4.5); POTASSIUM 4.6 MMOL/L (3.5-5.1); SODIUM 138 MMOL/L (135-145); TOTAL CARBON DIOXIDE 27.3 MMOL/L (24-32); eGFR 49 ML/MIN
[2021-10-18] MEDS: citrate dextrose 1000ml IV sol 1,000 ML IV PRN (06:05)
[2021-10-18 06:17] LABS: WHITE BLOOD COUNT 35.5 X10'3 (4.5-11.0)
--- NOTE | 2021-10-18 06:30 | NUR ---
Patient in room ICU 2042. I have received report from yesi and had the opportunity to ask questions and assume patient care.
--- NOTE | 2021-10-18 06:43 | NUR ---
Problems reprioritized. Patient report given, questions answered & plan of care reviewed with Sammie FU.
[2021-10-18 06:45] LABS: ANISOCYTOSIS 1+; MICROCYTOSIS 1+; PLATELET ESTIMATE NORMAL; TOTAL CELLS COUNTED 100
[2021-10-18 06:46] LABS: POIKILOCYTOSIS FEW; POLYCHROMASIA 1+
[2021-10-18] MEDS: heparin, porcine 5000 units/ml vial SQ SCH (08:00)
[2021-10-18] MEDS: K and/or MAG REPLACEMENT MC SCH ×2 (08:00→20:00)
[2021-10-18] MEDS: clopidogrel 75mg tablet PEG SCH (08:00)
[2021-10-18] MEDS: PEG 400/HYPROMELLOSE/GLYCERIN 15ml bottle EACHEYE PRN (08:33)
[2021-10-18] MEDS: piperacillin/tazo 3.375gm/50ml 50 ML IV SCH (08:34)
[2021-10-18] MEDS: pantoprazole IV 40 MG in dextrose 5%-water 100 ML IV SCH (08:34)
[2021-10-18] MEDS: atorvastatin 20mg tablet GT SCH (08:35)
[2021-10-18] MEDS: PARoxetine 20mg tablet GT SCH (08:35)
[2021-10-18] MEDS: topiramate 25mg tablet PEG SCH ×2 (08:35→20:28)
[2021-10-18] MEDS: acetaminophen 325mg tablet PEG SCH (08:35)
[2021-10-18] MEDS: fluconazole-Diflucan 200mg/NS 100 ML IV SCH (08:35)
[2021-10-18] MEDS: lactobacillus rhamnosus 10,000 MMU CELLS/CAPSULE PEG SCH (08:35)
[2021-10-18] MEDS: NORepinephrine 8mg/ 250ml NS 250 ML IV SCH ×2 (08:57→21:57)
[2021-10-18 09:04] LABS: APTT 35 SECONDS (22-32)
--- NOTE | 2021-10-18 10:06 | NUR ---
Reassessment: Pt remains intubated and receiving CVVH. Pt tolerating TF at goal rate with GRV WNL. LBM 10/16, with a rectal tube in place though no documentation of stool output quantity since 10/15 with 400 mL output per I&O. Pt previously receiving routine bowel care though it was held 10/17 d/t pt with diarrhea and ultimately discontinued. PRN bowel care remains available. No changes to nutrition interventions at this time. Will continue to follow. Recommendations: 1) Continuous TF via G-tube using Vital High Protein at 75 ml/hr goal to provide 1800 ml volume/day, 1800 kcal, 158 g protein, 1512 ml water 2) IF Vital High Protein TF not available substitute using Vital AF at 75 ml/hr goal to provide 1800 ml volume/day, 2160 kcal, 1458 ml water, and 135 g protein. 3) Additional water flush per MD given pt on CRRT 4) PALB q Wednesday/ 5) Daily scaled weights 6) Routine bowel care Addendum: 10/18/21 at [address] Amended: Links added.
[2021-10-18 10:48] LABS: OCCULT BLOOD STOOL NEGATIVE (Neg)
[2021-10-18] MEDS: vancomycin 125mg/5ml ORAL solution 5ml UD oral syringe PO SCH ×2 (12:00→20:00)
--- NOTE | 2021-10-18 12:00 | NUR ---
update to dr egan and dr Patel. inr and procalcitonin drawn. update again to dr patel re decreased hgb- ddavp ordered. call to dr egan re cdiff- neg- vanco dcd, mycofungin started. for ct to check for bleeding. md aware that pt has a hx of decreased factor 11, hemophilia as per sister.
[2021-10-18 12:37] LABS: BASOPHILS % (AUTO) 0.1 % (0-1); EOSINOPHILS # (AUTO) 0.1 X10'3 (0-0.9); EOSINOPHILS % (AUTO) 0.2 % (0-6); LYMPHOCYTES # (AUTO) 1.6 X10'3 (1.1-4.8)
[2021-10-18 12:38] LABS: LYMPHOCYTES % (AUTO) 4.6 % (21-51); MEAN CORPUSCULAR HEMOGLOBIN 28.1 PG (27.0-31.0); MEAN CORPUSCULAR HGB CONC 32.9 g/dL (33.0-36.5); MEAN CORPUSCULAR VOLUME 85.4 FL (78-98); MONOCYTES # (AUTO) 1.8 X10'3 (0-0.9); MONOCYTES % (AUTO) 5.1 % (2-12); NEUTROPHILS # (AUTO) 31.8 X10'3 (1.8-7.7); PLATELET COUNT 171 X10'3 (140-440); RED BLOOD COUNT 2.44 X10'6 (4.70-6.10); RED CELL DISTRIBUTION WIDTH 16.8 % (11.5-14.5)
[2021-10-18 12:40] LABS: HEMOGLOBIN 6.9 g/dl (14.0-17.9); WHITE BLOOD COUNT 35.3 X10'3 (4.5-11.0)
[2021-10-18 12:41] LABS: HEMATOCRIT 20.8 % (42.0-52.0)
[2021-10-18 12:42] LABS: C DIFF SPECIMEN=DIARRHEA? ACCEPTABLE; C DIFFICILE TOXINS A&B NEGATIVE (Neg)
[2021-10-18 12:42] LABS: ALBUMIN 1.2 G/DL (3.4-5.0); ANION GAP 10 (8-16); BLOOD UREA NITROGEN 34 MG/DL (7-18); BUN/CREATININE RATIO 24.6 (5.4-32.0); CALCIUM 8.6 MG/DL (8.5-10.1); CHLORIDE 106 MMOL/L (99-107); CREATININE 1.38 MG/DL (0.60-1.10); GLUCOSE 165 MG/DL (70-104); MAGNESIUM 1.9 MG/DL (1.5-2.4); PHOSPHORUS 3.1 MG/DL (2.3-4.5); POTASSIUM 4.5 MMOL/L (3.5-5.1); SODIUM 141 MMOL/L (135-145); eGFR 51 ML/MIN
[2021-10-18] MEDS ORDERED: NORMAL SALINE IV ONE (13:45)
[2021-10-18] MEDS ORDERED: DESMOPRESSIN IV ONE (13:45)
[2021-10-18] MEDS: micafungin inj 100 MG in normal saline 100ml IV soln 100 ML IV SCH (14:57)
[2021-10-18] MEDS ORDERED: potassium Cl 40MEQ/250ML bag 270 ML IV PRN (17:40)
[2021-10-18] MEDS ORDERED: Duosol 4K/3 Ca (w/calcium) 5,000 ML HE SCH (17:50)
[2021-10-18 18:24] LABS: BASOPHILS # (AUTO) 0.1 X10'3 (0-0.2); BASOPHILS % (AUTO) 0.2 % (0-1); LYMPHOCYTES # (AUTO) 1.9 X10'3 (1.1-4.8)
[2021-10-18 18:26] LABS: EOSINOPHILS % (AUTO) 0.1 % (0-6); MEAN CORPUSCULAR HEMOGLOBIN 28.1 PG (27.0-31.0); MEAN CORPUSCULAR HGB CONC 32.8 g/dL (33.0-36.5); MEAN CORPUSCULAR VOLUME 85.7 FL (78-98); MONOCYTES # (AUTO) 1.7 X10'3 (0-0.9); MONOCYTES % (AUTO) 5.3 % (2-12); NEUTROPHILS # (AUTO) 28.2 X10'3 (1.8-7.7); NEUTROPHILS % (AUTO) 88.4 % (42-75); PLATELET COUNT 187 X10'3 (140-440); RED BLOOD COUNT 2.18 X10'6 (4.70-6.10)
--- NOTE | 2021-10-18 18:30 | NUR ---
Patient in room ICU 2042. I have received report from Sammie Acosta RN and had the opportunity to ask questions and assume patient care.
[2021-10-18 18:33] LABS: HEMOGLOBIN 6.1 g/dl (14.0-17.9); WHITE BLOOD COUNT 31.9 X10'3 (4.5-11.0)
[2021-10-18 18:34] LABS: HEMATOCRIT 18.6 % (42.0-52.0)
[2021-10-18 18:39] LABS: ALBUMIN 1.2 G/DL (3.4-5.0); ANION GAP 6 (8-16); BLOOD UREA NITROGEN 39 MG/DL (7-18); BUN/CREATININE RATIO 25.5 (5.4-32.0); CALCIUM 8.6 MG/DL (8.5-10.1); CHLORIDE 106 MMOL/L (99-107); CREATININE 1.53 MG/DL (0.60-1.10); GLUCOSE 97 MG/DL (70-104); PHOSPHORUS 3.1 MG/DL (2.3-4.5); POTASSIUM 4.4 MMOL/L (3.5-5.1); SODIUM 141 MMOL/L (135-145); TOTAL CARBON DIOXIDE 29.5 MMOL/L (24-32); eGFR 46 ML/MIN
[2021-10-18] MEDS: [UNRECOGNIZED DRUG - OTHER] HE SCH ×3 (18:51→18:53)
[2021-10-18] MEDS: CALCIUM CHLORIDE IV SCH (18:52)
[2021-10-18] MEDS: NS IV SCH (18:52)
[2021-10-18] MEDS: insulin glargine (Lantus) pen - multi-dose SQ SCH (20:52)
--- NOTE | 2021-10-18 22:00 | NUR ---
Carol hugger blanket warmer applied to patient for core temp 36.1, CVVH in progress, blood transfusion in progress.
[2021-10-18 23:45] LABS: BASOPHILS # (AUTO) 0.1 X10'3 (0-0.2); HEMOGLOBIN 9.9 g/dl (14.0-17.9); MEAN PLATELET VOLUME 9.9 FL (7.4-10.4)
[2021-10-18 23:47] LABS: BASOPHILS % (AUTO) 0.3 % (0-1); EOSINOPHILS # (AUTO) 0.2 X10'3 (0-0.9); EOSINOPHILS % (AUTO) 0.5 % (0-6); HEMATOCRIT 29.6 % (42.0-52.0); LYMPHOCYTES # (AUTO) 1.3 X10'3 (1.1-4.8); LYMPHOCYTES % (AUTO) 3.6 % (21-51); MEAN CORPUSCULAR HEMOGLOBIN 29.7 PG (27.0-31.0); MEAN CORPUSCULAR HGB CONC 33.5 g/dL (33.0-36.5); MEAN CORPUSCULAR VOLUME 88.6 FL (78-98); MONOCYTES # (AUTO) 1.8 X10'3 (0-0.9); MONOCYTES % (AUTO) 5.1 % (2-12); NEUTROPHILS # (AUTO) 31.7 X10'3 (1.8-7.7); NEUTROPHILS % (AUTO) 90.5 % (42-75); PLATELET COUNT 121 X10'3 (140-440); RED BLOOD COUNT 3.35 X10'6 (4.70-6.10); RED CELL DISTRIBUTION WIDTH 15.8 % (11.5-14.5)
[2021-10-18 23:53] LABS: WHITE BLOOD COUNT 35.1 X10'3 (4.5-11.0)
[2021-10-18 23:55] LABS: ALBUMIN 1.3 G/DL (3.4-5.0); ANION GAP 11 (8-16); BLOOD UREA NITROGEN 40 MG/DL (7-18); BUN/CREATININE RATIO 31.3 (5.4-32.0); CALCIUM 8.6 MG/DL (8.5-10.1); CHLORIDE 107 MMOL/L (99-107); CREATININE 1.28 MG/DL (0.60-1.10); GLUCOSE 111 MG/DL (70-104); PHOSPHORUS 2.9 MG/DL (2.3-4.5); POTASSIUM 4.8 MMOL/L (3.5-5.1); SODIUM 141 MMOL/L (135-145); TOTAL CARBON DIOXIDE 22.9 MMOL/L (24-32); eGFR 56 ML/MIN
[2021-10-19] VITALS (23 sets, daily range): BP systolic 106–136; BP diastolic 39–52
[2021-10-19] MEDS: HYDROmorphone 1 mg/ml syringe IV PRN (00:13)
[2021-10-19] MEDS: dexmedetomidin/NS 400mcg/100ml 100 ML IV SCH ×3 (01:43→22:51)
[2021-10-19] MEDS: vancomycin 125mg/5ml ORAL solution 5ml UD oral syringe PO SCH ×5 (01:44→19:22)
[2021-10-19] MEDS: insulin regular, human U-100 3ml vial - multi-dose SQ SCH ×3 (02:21→20:07)
[2021-10-19 03:15] LABS: ABG BASE EXCESS -1.1 mmol/L (-2.0-2.0); ABG HCO3 22.2 mmol/L (22.0-26.0); ABG OXYGEN SATURATION 96.7 % (94-97); ABG PCO2 (T) 30.1 mmHg (35.0-48.0); ABG PO2 (T) 83.1 mmHg (75.0-100.0); FCOHb 0.3 % (0.0-3.9); FMetHb 0.3 % (0.0-1.5); FO2Hb 96.1 % (94-97); PATIENT TEMPERATURE 35.5; PEEP 5 cm H2O; TOTAL HEMOGLOBIN 10.1 G/dl (14.0-18.0)
[2021-10-19] MEDS: [UNRECOGNIZED DRUG - OTHER] HE SCH ×9 (03:19→15:44)
[2021-10-19 06:18] LABS: ALBUMIN 1.2 G/DL (3.4-5.0); ANION GAP 8 (8-16); BLOOD UREA NITROGEN 35 MG/DL (7-18); BUN/CREATININE RATIO 28.7 (5.4-32.0); CALCIUM 8.8 MG/DL (8.5-10.1); CHLORIDE 107 MMOL/L (99-107); CREATININE 1.22 MG/DL (0.60-1.10); GLUCOSE 104 MG/DL (70-104); PHOSPHORUS 2.6 MG/DL (2.3-4.5); POTASSIUM 4.8 MMOL/L (3.5-5.1); SODIUM 139 MMOL/L (135-145); eGFR 59 ML/MIN
--- NOTE | 2021-10-19 06:23 | NUR ---
Problems reprioritized. Patient report given, questions answered & plan of care reviewed with NICKIE Berkowitz.
[2021-10-19 06:44] LABS: EOSINOPHILS # (AUTO) 0.1 X10'3 (0-0.9); HEMOGLOBIN 8.9 g/dl (14.0-17.9); MEAN PLATELET VOLUME 9.9 FL (7.4-10.4)
[2021-10-19 06:45] LABS: BASOPHILS % (AUTO) 0.1 % (0-1); EOSINOPHILS % (AUTO) 0.3 % (0-6); HEMATOCRIT 26.6 % (42.0-52.0); LYMPHOCYTES # (AUTO) 1.6 X10'3 (1.1-4.8); MEAN CORPUSCULAR HEMOGLOBIN 29.7 PG (27.0-31.0); MEAN CORPUSCULAR HGB CONC 33.6 g/dL (33.0-36.5); MEAN CORPUSCULAR VOLUME 88.5 FL (78-98); MONOCYTES # (AUTO) 1.3 X10'3 (0-0.9); NEUTROPHILS # (AUTO) 29.1 X10'3 (1.8-7.7); NEUTROPHILS % (AUTO) 90.6 % (42-75); PLATELET COUNT 118 X10'3 (140-440); RED BLOOD COUNT 3.01 X10'6 (4.70-6.10); RED CELL DISTRIBUTION WIDTH 15.5 % (11.5-14.5)
[2021-10-19 06:51] LABS: WHITE BLOOD COUNT 32.1 X10'3 (4.5-11.0)
[2021-10-19] MEDS: K and/or MAG REPLACEMENT MC SCH ×2 (08:00→20:00)
[2021-10-19] MEDS: topiramate 25mg tablet PEG SCH ×2 (08:40→20:01)
[2021-10-19] MEDS: hydrocortisone sod succ/PF 100mg/2ml inj. IV SCH ×2 (08:40→20:02)
[2021-10-19] MEDS: PARoxetine 20mg tablet GT SCH (08:40)
[2021-10-19] MEDS: atorvastatin 20mg tablet GT SCH (08:40)
[2021-10-19] MEDS: micafungin inj 100 MG in normal saline 100ml IV soln 100 ML IV SCH (08:41)
[2021-10-19 09:01] LABS: TOTAL CELLS COUNTED 100
[2021-10-19] MEDS: pantoprazole IV 40 MG in dextrose 5%-water 100 ML IV SCH (09:01)
[2021-10-19 09:03] LABS: PLATELET ESTIMATE DECREASED
[2021-10-19 09:04] LABS: ACANTHOCYTES 1+; BURR CELLS FEW; POLYCHROMASIA 1+; SCHISTOCYTES FEW
[2021-10-19] MEDS: meropenem inj 500 MG in normal saline 100ml IV soln 100 ML IV SCH ×3 (09:50→20:01)
[2021-10-19 11:40] LABS: ALBUMIN 1.2 G/DL (3.4-5.0); ANION GAP 8 (8-16); BLOOD UREA NITROGEN 35 MG/DL (7-18); BUN/CREATININE RATIO 27.3 (5.4-32.0); CALCIUM 8.3 MG/DL (8.5-10.1); CHLORIDE 107 MMOL/L (99-107); CREATININE 1.28 MG/DL (0.60-1.10); GLUCOSE 123 MG/DL (70-104); PHOSPHORUS 2.2 MG/DL (2.3-4.5); POTASSIUM 5.1 MMOL/L (3.5-5.1); SODIUM 136 MMOL/L (135-145); TOTAL CARBON DIOXIDE 21.1 MMOL/L (24-32); eGFR 56 ML/MIN
[2021-10-19 11:41] LABS: HEMATOCRIT 26.8 % (42.0-52.0); HEMOGLOBIN 8.8 g/dl (14.0-17.9); PLATELET COUNT 120 X10'3 (140-440)
[2021-10-19 11:43] LABS: BASOPHILS % (AUTO) 0.2 % (0-1); EOSINOPHILS # (AUTO) 0.2 X10'3 (0-0.9); EOSINOPHILS % (AUTO) 0.6 % (0-6); LYMPHOCYTES # (AUTO) 1.4 X10'3 (1.1-4.8); LYMPHOCYTES % (AUTO) 4.5 % (21-51); MEAN CORPUSCULAR HEMOGLOBIN 29.3 PG (27.0-31.0); MEAN CORPUSCULAR HGB CONC 32.8 g/dL (33.0-36.5); MEAN CORPUSCULAR VOLUME 89.6 FL (78-98); MEAN PLATELET VOLUME 9.6 FL (7.4-10.4); MONOCYTES # (AUTO) 1.3 X10'3 (0-0.9); MONOCYTES % (AUTO) 4.4 % (2-12); NEUTROPHILS # (AUTO) 27.4 X10'3 (1.8-7.7); NEUTROPHILS % (AUTO) 90.3 % (42-75); RED BLOOD COUNT 2.99 X10'6 (4.70-6.10)
[2021-10-19 11:46] LABS: WHITE BLOOD COUNT 30.3 X10'3 (4.5-11.0)
[2021-10-19] MEDS: CALCIUM CHLORIDE IV SCH (12:30)
[2021-10-19] MEDS: NS IV SCH (12:30)
[2021-10-19] MEDS ORDERED: heparin 1,000 units/ml 10ml inj HE ONE ×2 (12:40)
--- NOTE | 2021-10-19 18:30 | NUR ---
Patient in room ICU 2042. I have received report from NICKIE Berkowitz and had the opportunity to ask questions and assume patient care.
[2021-10-19] MEDS: NORepinephrine 8mg/ 250ml NS 250 ML IV SCH (20:01)
[2021-10-19] MEDS: insulin glargine (Lantus) pen - multi-dose SQ SCH (20:07)
[2021-10-19] MEDS: PEG 400/HYPROMELLOSE/GLYCERIN 15ml bottle EACHEYE PRN (20:09)
[2021-10-20] VITALS (23 sets, daily range): BP systolic 100–136; BP diastolic 40–56
[2021-10-20] MEDS: meropenem inj 500 MG in normal saline 100ml IV soln 100 ML IV SCH ×2 (02:35→08:27)
[2021-10-20] MEDS: insulin regular, human U-100 3ml vial - multi-dose SQ SCH ×2 (02:39→14:49)
[2021-10-20 03:05] LABS: ABG BASE EXCESS -2.9 mmol/L (-2.0-2.0); ABG HCO3 19.8 mmol/L (22.0-26.0); ABG OXYGEN SATURATION 96.6 % (94-97); ABG PCO2 (T) 26.6 mmHg (35.0-48.0); ABG PO2 (T) 88.1 mmHg (75.0-100.0); FCOHb 0.3 % (0.0-3.9); FMetHb 0.2 % (0.0-1.5); FO2Hb 96.1 % (94-97); PEEP 5 cm H2O; RESPIRATORY RATE 22 b/min; TOTAL HEMOGLOBIN 8.5 G/dl (14.0-18.0)
[2021-10-20 03:48] LABS: ANION GAP 10 (8-16); BLOOD UREA NITROGEN 60 MG/DL (7-18); BUN/CREATININE RATIO 30.3 (5.4-32.0); CHLORIDE 107 MMOL/L (99-107); CREATININE 1.98 MG/DL (0.60-1.10); GLUCOSE 190 MG/DL (70-104); POTASSIUM 5.7 MMOL/L (3.5-5.1); SODIUM 137 MMOL/L (135-145); TOTAL CARBON DIOXIDE 20.1 MMOL/L (24-32); eGFR 34 ML/MIN
[2021-10-20 03:49] LABS: ALBUMIN 1.2 G/DL (3.4-5.0); CALCIUM 7.9 MG/DL (8.5-10.1); PHOSPHORUS 2.3 MG/DL (2.3-4.5); PREALBUMIN 15.7 MG/DL (19-36)
[2021-10-20 04:05] LABS: EOSINOPHILS % (AUTO) 0.2 % (0-6); LYMPHOCYTES # (AUTO) 1.3 X10'3 (1.1-4.8); LYMPHOCYTES % (AUTO) 4.9 % (21-51); MEAN CORPUSCULAR HEMOGLOBIN 29.9 PG (27.0-31.0); MONOCYTES # (AUTO) 1.1 X10'3 (0-0.9)
[2021-10-20 04:07] LABS: BASOPHILS % (AUTO) 0.1 % (0-1); HEMATOCRIT 24.2 % (42.0-52.0); MEAN CORPUSCULAR HGB CONC 32.9 g/dL (33.0-36.5); MEAN CORPUSCULAR VOLUME 90.7 FL (78-98); MONOCYTES % (AUTO) 4.3 % (2-12); NEUTROPHILS # (AUTO) 23.6 X10'3 (1.8-7.7); NEUTROPHILS % (AUTO) 90.5 % (42-75); PLATELET COUNT 132 X10'3 (140-440); RED BLOOD COUNT 2.67 X10'6 (4.70-6.10)
[2021-10-20 04:22] LABS: WHITE BLOOD COUNT 26.2 X10'3 (4.5-11.0)
--- NOTE | 2021-10-20 06:08 | NUR ---
Problems reprioritized. Patient report given, questions answered & plan of care reviewed with Woo,RN and KyleRN.
[2021-10-20 08:21] LABS: ANISOCYTOSIS 2+; MICROCYTOSIS 1+; NUCLEATED RED BLOOD CELLS 2 /100WBC (0-0); PLATELET ESTIMATE DECREASED; TOTAL CELLS COUNTED 100
[2021-10-20 08:22] LABS: POLYCHROMASIA 2+; SCHISTOCYTES 1+
[2021-10-20] MEDS: topiramate 25mg tablet PEG SCH ×2 (09:25→20:55)
[2021-10-20] MEDS: atorvastatin 20mg tablet GT SCH (09:25)
[2021-10-20] MEDS: clopidogrel 75mg tablet PEG SCH (09:25)
[2021-10-20] MEDS: PARoxetine 20mg tablet GT SCH (09:26)
[2021-10-20] MEDS: pantoprazole IV 40 MG in dextrose 5%-water 100 ML IV SCH (09:26)
[2021-10-20] MEDS: hydrocortisone sod succ/PF 100mg/2ml inj. IV SCH ×2 (09:26→20:55)
[2021-10-20] MEDS: micafungin inj 100 MG in normal saline 100ml IV soln 100 ML IV SCH (09:26)
[2021-10-20] MEDS: heparin, porcine 5000 units/ml vial SQ SCH ×2 (10:25→20:56)
[2021-10-20] MEDS ORDERED: vancomycin/NS 1 GM ADD-VANTAGE 250 ML X 1 DOSE IV ONE (10:50)
[2021-10-20] MEDS ORDERED: vancomycin/NS 1 GM ADD-VANTAGE 250 ML IV PRN (12:05)
[2021-10-20] MEDS ORDERED: albumin (human) 25% 100ml IV 100 ML IV PRN (13:20)
[2021-10-20] MEDS ORDERED: EPOETIN ALFA-EPBX 20,000 UNIT/ML 1 ML MDV IV ONE (13:20)
[2021-10-20] MEDS ORDERED: normal saline 1000ml 100 ML IV PRN (13:20)
[2021-10-20] MEDS ORDERED: heparin 1,000 units/ml 10ml inj HE ONE ×2 (13:25)
--- NOTE | 2021-10-20 18:30 | NUR ---
Patient in room ICU 2042. I have received report from NICKIE Wright and had the opportunity to ask questions and assume patient care.
[2021-10-20] MEDS: K and/or MAG REPLACEMENT MC SCH ×2 (18:41→20:00)
[2021-10-20] MEDS: dexmedetomidin/NS 400mcg/100ml 100 ML IV SCH (18:42)
[2021-10-20] MEDS: VANCOMYCIN LEVEL IV SCH (19:27)
[2021-10-20] MEDS: insulin glargine (Lantus) pen - multi-dose SQ SCH (20:45)
--- NOTE | 2021-10-20 20:46 | NUR ---
insulin being held for BG 88, will recheck BG at 0200
[2021-10-21] VITALS (20 sets, daily range): BP systolic 111–137; BP diastolic 50–83
[2021-10-21] MEDS: insulin regular, human U-100 3ml vial - multi-dose SQ SCH ×3 (02:44→21:45)
[2021-10-21 02:55] LABS: BASOPHILS # (AUTO) 0.1 X10'3 (0-0.2); BASOPHILS % (AUTO) 0.4 % (0-1); EOSINOPHILS % (AUTO) 0.2 % (0-6); HEMATOCRIT 25.5 % (42.0-52.0); HEMOGLOBIN 8.3 g/dl (14.0-17.9); LYMPHOCYTES # (AUTO) 1.1 X10'3 (1.1-4.8); LYMPHOCYTES % (AUTO) 4.9 % (21-51); MEAN CORPUSCULAR HEMOGLOBIN 29.8 PG (27.0-31.0); MEAN CORPUSCULAR HGB CONC 32.7 g/dL (33.0-36.5); MEAN CORPUSCULAR VOLUME 91.2 FL (78-98); MEAN PLATELET VOLUME 9.4 FL (7.4-10.4); MONOCYTES # (AUTO) 1.1 X10'3 (0-0.9); NEUTROPHILS # (AUTO) 20.5 X10'3 (1.8-7.7); NEUTROPHILS % (AUTO) 89.5 % (42-75); PLATELET COUNT 129 X10'3 (140-440); WHITE BLOOD COUNT 22.9 X10'3 (4.5-11.0)
[2021-10-21 03:15] LABS: ALANINE AMINOTRANSFERASE 27 U/L (12-78); ALBUMIN 1.2 G/DL (3.4-5.0); ALBUMIN/GLOBULIN RATIO 0.3 (1.1-1.5); ALKALINE PHOSPHATASE 83 IU/L (46-116); ANION GAP 10 (8-16); ASPARTATE AMINO TRANSFERASE 32 U/L (10-37); BILIRUBIN,TOTAL 0.7 MG/DL (0.1-1.0); BLOOD UREA NITROGEN 53 MG/DL (7-18); BUN/CREATININE RATIO 28.6 (5.4-32.0); CALCIUM 7.7 MG/DL (8.5-10.1); CHLORIDE 106 MMOL/L (99-107); CREATININE 1.85 MG/DL (0.60-1.10); GLUCOSE 166 MG/DL (70-104); MAGNESIUM 1.8 MG/DL (1.5-2.4); PHOSPHORUS 2.3 MG/DL (2.3-4.5); POTASSIUM 4.4 MMOL/L (3.5-5.1); SODIUM 140 MMOL/L (135-145); TOTAL CARBON DIOXIDE 24.4 MMOL/L (24-32); TOTAL PROTEIN 4.7 G/DL (6.4-8.2); eGFR 37 ML/MIN
[2021-10-21 04:09] LABS: PLATELET ESTIMATE DECREASED; TOTAL CELLS COUNTED 100
[2021-10-21 04:11] LABS: ANISOCYTOSIS 2+; POLYCHROMASIA 1+
[2021-10-21 04:12] LABS: SCHISTOCYTES FEW
--- NOTE | 2021-10-21 06:13 | NUR ---
Problems reprioritized. Patient report given, questions answered & plan of care reviewed with NICKIE Barr.
--- NOTE | 2021-10-21 06:37 | NUR ---
Patient in room ICU 2042. I have received report from Jes FU and had the opportunity to ask questions and assume patient care.
[2021-10-21] MEDS: dexmedetomidin/NS 400mcg/100ml 100 ML IV SCH ×2 (06:51→11:28)
[2021-10-21] MEDS: K and/or MAG REPLACEMENT MC SCH ×2 (08:00→19:09)
[2021-10-21] MEDS: topiramate 25mg tablet PEG SCH ×2 (08:50→21:02)
[2021-10-21] MEDS: meropenem inj 500 MG in normal saline 100ml IV soln 100 ML IV SCH (08:50)
[2021-10-21] MEDS: PARoxetine 20mg tablet GT SCH (08:50)
[2021-10-21] MEDS: atorvastatin 20mg tablet GT SCH (08:50)
[2021-10-21] MEDS: clopidogrel 75mg tablet PEG SCH (08:50)
[2021-10-21] MEDS: hydrocortisone sod succ/PF 100mg/2ml inj. IV SCH ×2 (08:50→21:02)
[2021-10-21] MEDS: pantoprazole IV 40 MG in dextrose 5%-water 100 ML IV SCH (09:55)
[2021-10-21] MEDS: micafungin inj 100 MG in normal saline 100ml IV soln 100 ML IV SCH (11:08)
[2021-10-21] MEDS: heparin, porcine 5000 units/ml vial SQ SCH ×2 (11:08→21:02)
--- NOTE | 2021-10-21 14:31 | NUR ---
F/u 10/21: Pt extubated off CVVH now on intermittent HD tolerating TF at goal. Will leave current TF recs the same as pt electrolytes WNL and PALB 15.7 this AM steadily improving on HD. Noted pt 6.8kg wt gain past 24 hours w/ positive .27L fluid balance that time period; likely error. 3 BM's past 24 hours per EMR. Glu 56mg/dl yesterday AM likely related to receiving 29 units Lantus 10/19 PM w/ AM Glu 83mg/dl 10/19. Will continue to monitor for TF tolerance and adjustment needs this admit. Recommendations: 1) Continuous TF via G-tube using Vital High Protein at 75 ml/hr goal to provide 1800 ml volume/day, 1800 kcal, 158 g protein, 1512 ml water 2) Monitor for TF adjustment needs off CVVH on HD; PALB steadily improving 3) Additional water flush per MD on HD 4) PALB q Wednesday/; Daily scaled weights 5) Routine bowel care Addendum: 10/21/21 at [address] Amended: Links added.
[2021-10-21] MEDS: insulin glargine (Lantus) pen - multi-dose SQ SCH (21:37)
[2021-10-22 02:00] VITALS: BP 127/61
[2021-10-22] MEDS: insulin regular, human U-100 3ml vial - multi-dose SQ SCH ×3 (02:33→14:24)
[2021-10-22] MEDS: VANCOMYCIN LEVEL IV SCH (03:00)
[2021-10-22] MEDS: acetaminophen 325mg tablet GT PRN ×3 (05:34→21:17)
[2021-10-22 06:19] LABS: VANCOMYCIN,RANDOM 17.6 UG/ML
[2021-10-22 07:00] VITALS: BP 121/70
--- NOTE | 2021-10-22 07:07 | NUR ---
Patient in room PCU 3024. I have received report from and had the opportunity to ask questions and assume patient care.
[2021-10-22] MEDS ORDERED: heparin 1,000unit/ml 10ml vial 10 ML IV ONE (08:00)
[2021-10-22] MEDS ORDERED: heparin 1,000 units/ml 10ml inj IV ONE (08:00)
[2021-10-22] MEDS ORDERED: heparin 1,000 units/ml 10ml inj HE ONE ×2 (08:00)
[2021-10-22] MEDS ORDERED: albumin (human) 25% 100ml IV 100 ML IV PRN (08:00)
[2021-10-22] MEDS: K and/or MAG REPLACEMENT MC SCH ×2 (08:00→20:00)
[2021-10-22] MEDS ORDERED: EPOETIN ALFA-EPBX 20,000 UNIT/ML 1 ML MDV IV ONE (08:00)
[2021-10-22 08:25] LABS: BASOPHILS % (AUTO) 0.2 % (0-1); EOSINOPHILS # (AUTO) 0.2 X10'3 (0-0.9); EOSINOPHILS % (AUTO) 1.1 % (0-6); HEMATOCRIT 29.4 % (42.0-52.0); HEMOGLOBIN 9.5 g/dl (14.0-17.9); LYMPHOCYTES # (AUTO) 1.7 X10'3 (1.1-4.8); LYMPHOCYTES % (AUTO) 8.1 % (21-51); MEAN CORPUSCULAR HEMOGLOBIN 29.5 PG (27.0-31.0); MEAN CORPUSCULAR HGB CONC 32.4 g/dL (33.0-36.5); MEAN CORPUSCULAR VOLUME 90.9 FL (78-98); MEAN PLATELET VOLUME 9.7 FL (7.4-10.4); MONOCYTES # (AUTO) 0.9 X10'3 (0-0.9); MONOCYTES % (AUTO) 4.3 % (2-12); NEUTROPHILS % (AUTO) 86.3 % (42-75); PLATELET COUNT 165 X10'3 (140-440); RED BLOOD COUNT 3.24 X10'6 (4.70-6.10); RED CELL DISTRIBUTION WIDTH 16.6 % (11.5-14.5); WHITE BLOOD COUNT 20.8 X10'3 (4.5-11.0)
[2021-10-22] MEDS: micafungin inj 100 MG in normal saline 100ml IV soln 100 ML IV SCH (08:42)
[2021-10-22] MEDS: meropenem inj 500 MG in normal saline 100ml IV soln 100 ML IV SCH (08:42)
[2021-10-22] MEDS: atorvastatin 20mg tablet GT SCH (08:43)
[2021-10-22] MEDS: heparin, porcine 5000 units/ml vial SQ SCH ×2 (08:43→21:18)
[2021-10-22] MEDS: hydrocortisone sod succ/PF 100mg/2ml inj. IV SCH (08:44)
[2021-10-22] MEDS: topiramate 25mg tablet PEG SCH ×2 (08:44→21:18)
[2021-10-22] MEDS: clopidogrel 75mg tablet PEG SCH (08:44)
[2021-10-22] MEDS: PARoxetine 20mg tablet GT SCH (08:44)
[2021-10-22 08:48] LABS: ALANINE AMINOTRANSFERASE 27 U/L (12-78); ALBUMIN 1.3 G/DL (3.4-5.0); ALBUMIN/GLOBULIN RATIO 0.4 (1.1-1.5); ALKALINE PHOSPHATASE 83 IU/L (46-116); ANION GAP 12 (8-16); ASPARTATE AMINO TRANSFERASE 25 U/L (10-37); BILIRUBIN,TOTAL 0.6 MG/DL (0.1-1.0); BLOOD UREA NITROGEN 74 MG/DL (7-18); BUN/CREATININE RATIO 28.7 (5.4-32.0); CALCIUM 7.9 MG/DL (8.5-10.1); CHLORIDE 106 MMOL/L (99-107); CREATININE 2.58 MG/DL (0.60-1.10); GLUCOSE 62 MG/DL (70-104); POTASSIUM 4.3 MMOL/L (3.5-5.1); SODIUM 140 MMOL/L (135-145); TOTAL CARBON DIOXIDE 22.4 MMOL/L (24-32); eGFR 25 ML/MIN
[2021-10-22] MEDS: lansoprazole 15mg solutab PEG SCH (09:18)
[2021-10-22 10:00] LABS: HBSAG SCREEN Negative (Negative)
[2021-10-22 11:00] VITALS: BP 100/67
[2021-10-22 16:00] VITALS: BP 119/71
[2021-10-22 18:00] VITALS: BP 130/73
[2021-10-22] MEDS ORDERED: dextrose 50%-water 50ml dispensing syringe IV ONE (20:54)
[2021-10-22] MEDS: insulin glargine (Lantus) pen - multi-dose SQ SCH (21:00)
[2021-10-22 22:00] VITALS: BP 129/73
[2021-10-23 02:00] VITALS: BP 128/72
[2021-10-23] MEDS: VANCOMYCIN LEVEL IV SCH (03:00)
[2021-10-23 06:22] LABS: BASOPHILS # (AUTO) 0.1 X10'3 (0-0.2); BASOPHILS % (AUTO) 0.3 % (0-1); EOSINOPHILS # (AUTO) 0.2 X10'3 (0-0.9); HEMATOCRIT 26.4 % (42.0-52.0); HEMOGLOBIN 8.7 g/dl (14.0-17.9); LYMPHOCYTES % (AUTO) 6.8 % (21-51); MEAN CORPUSCULAR HEMOGLOBIN 29.7 PG (27.0-31.0); MEAN CORPUSCULAR HGB CONC 32.8 g/dL (33.0-36.5); MEAN CORPUSCULAR VOLUME 90.6 FL (78-98); MEAN PLATELET VOLUME 9.5 FL (7.4-10.4); MONOCYTES # (AUTO) 0.6 X10'3 (0-0.9); MONOCYTES % (AUTO) 4.1 % (2-12); NEUTROPHILS # (AUTO) 12.8 X10'3 (1.8-7.7); NEUTROPHILS % (AUTO) 87.8 % (42-75); PLATELET COUNT 154 X10'3 (140-440); RED BLOOD COUNT 2.91 X10'6 (4.70-6.10); RED CELL DISTRIBUTION WIDTH 16.5 % (11.5-14.5); WHITE BLOOD COUNT 14.5 X10'3 (4.5-11.0)
[2021-10-23 06:47] LABS: ALANINE AMINOTRANSFERASE 18 U/L (12-78); ALBUMIN 1.2 G/DL (3.4-5.0); ALBUMIN/GLOBULIN RATIO 0.3 (1.1-1.5); ALKALINE PHOSPHATASE 77 IU/L (46-116); ANION GAP 9 (8-16); ASPARTATE AMINO TRANSFERASE 21 U/L (10-37); BILIRUBIN,TOTAL 0.7 MG/DL (0.1-1.0); BLOOD UREA NITROGEN 63 MG/DL (7-18); BUN/CREATININE RATIO 25.8 (5.4-32.0); CALCIUM 7.8 MG/DL (8.5-10.1); CHLORIDE 104 MMOL/L (99-107); CREATININE 2.44 MG/DL (0.60-1.10); GLUCOSE 158 MG/DL (70-104); POTASSIUM 4.6 MMOL/L (3.5-5.1); SODIUM 138 MMOL/L (135-145); TOTAL CARBON DIOXIDE 25.5 MMOL/L (24-32); TOTAL PROTEIN 4.7 G/DL (6.4-8.2); VANCOMYCIN,RANDOM 13.6 UG/ML; eGFR 27 ML/MIN
[2021-10-23 07:00] VITALS: BP 126/69
--- NOTE | 2021-10-23 07:07 | NUR ---
Patient in room PCU 3024. I have received report from Isis FU and had the opportunity to ask questions and assume patient care.
[2021-10-23] MEDS: K and/or MAG REPLACEMENT MC SCH ×2 (08:00→19:44)
[2021-10-23] MEDS ORDERED: vancomycin/NS 1 GM ADD-VANTAGE 250 ML IV ONE (08:25)
[2021-10-23] MEDS: meropenem inj 500 MG in normal saline 100ml IV soln 100 ML IV SCH (09:27)
[2021-10-23] MEDS: heparin, porcine 5000 units/ml vial SQ SCH ×2 (09:27→20:30)
[2021-10-23] MEDS: fluconazole-Diflucan 200mg/NS 100 ML IV SCH (09:27)
[2021-10-23] MEDS: PARoxetine 20mg tablet GT SCH (09:28)
[2021-10-23] MEDS: atorvastatin 20mg tablet GT SCH (09:28)
[2021-10-23] MEDS: clopidogrel 75mg tablet PEG SCH (09:28)
[2021-10-23] MEDS: topiramate 25mg tablet PEG SCH ×2 (09:28→20:30)
[2021-10-23] MEDS: lansoprazole 15mg solutab PEG SCH (09:28)
[2021-10-23] MEDS: insulin regular, human U-100 3ml vial - multi-dose SQ SCH ×2 (09:32→15:18)
[2021-10-23 11:00] VITALS: BP 128/72
[2021-10-23 15:00] VITALS: BP 138/84
[2021-10-23] MEDS ORDERED: heparin 1,000 units/ml 10ml inj HE ONE ×2 (15:25)
[2021-10-23 18:00] VITALS: BP 146/76
--- NOTE | 2021-10-23 18:39 | NUR ---
Problems reprioritized. Patient report given, questions answered & plan of care reviewed with Isis FU.
[2021-10-23] MEDS: acetaminophen 325mg tablet GT PRN (20:31)
[2021-10-23] MEDS: insulin glargine (Lantus) pen - multi-dose SQ SCH (21:00)
[2021-10-23 22:00] VITALS: BP 147/69
[2021-10-24 02:00] VITALS: BP 134/80
--- NOTE | 2021-10-24 02:00 | NUR ---
pt given tylenol x2 for increased temp. will continue to monitor
[2021-10-24] MEDS: acetaminophen 325mg tablet GT PRN ×3 (02:56→22:40)
[2021-10-24] MEDS: VANCOMYCIN LEVEL IV SCH (03:00)
[2021-10-24 03:37] LABS: BASOPHILS # (AUTO) 0.1 X10'3 (0-0.2); BASOPHILS % (AUTO) 0.6 % (0-1); EOSINOPHILS # (AUTO) 0.1 X10'3 (0-0.9); EOSINOPHILS % (AUTO) 0.9 % (0-6); HEMATOCRIT 26.8 % (42.0-52.0); HEMOGLOBIN 8.7 g/dl (14.0-17.9); LYMPHOCYTES # (AUTO) 0.7 X10'3 (1.1-4.8); LYMPHOCYTES % (AUTO) 5.9 % (21-51); MEAN CORPUSCULAR HEMOGLOBIN 29.4 PG (27.0-31.0); MEAN CORPUSCULAR HGB CONC 32.2 g/dL (33.0-36.5); MEAN CORPUSCULAR VOLUME 91.1 FL (78-98); MEAN PLATELET VOLUME 9.3 FL (7.4-10.4); MONOCYTES # (AUTO) 0.4 X10'3 (0-0.9); NEUTROPHILS # (AUTO) 11.1 X10'3 (1.8-7.7); NEUTROPHILS % (AUTO) 89.6 % (42-75); PLATELET COUNT 168 X10'3 (140-440); RED BLOOD COUNT 2.95 X10'6 (4.70-6.10); RED CELL DISTRIBUTION WIDTH 16.4 % (11.5-14.5); WHITE BLOOD COUNT 12.3 X10'3 (4.5-11.0)
[2021-10-24 03:47] LABS: ALANINE AMINOTRANSFERASE 18 U/L (12-78); ALBUMIN 1.2 G/DL (3.4-5.0); ALBUMIN/GLOBULIN RATIO 0.3 (1.1-1.5); ALKALINE PHOSPHATASE 80 IU/L (46-116); ANION GAP 12 (8-16); ASPARTATE AMINO TRANSFERASE 25 U/L (10-37); BILIRUBIN,TOTAL 0.7 MG/DL (0.1-1.0); BLOOD UREA NITROGEN 89 MG/DL (7-18); BUN/CREATININE RATIO 29.8 (5.4-32.0); CALCIUM 7.5 MG/DL (8.5-10.1); CHLORIDE 106 MMOL/L (99-107); CREATININE 2.99 MG/DL (0.60-1.10); GLUCOSE 169 MG/DL (70-104); POTASSIUM 5.2 MMOL/L (3.5-5.1); SODIUM 142 MMOL/L (135-145); TOTAL CARBON DIOXIDE 23.8 MMOL/L (24-32); TOTAL PROTEIN 4.9 G/DL (6.4-8.2); eGFR 21 ML/MIN
[2021-10-24 03:50] LABS: VANCOMYCIN,TROUGH 24.6 UG/ML (6.0-14.0)
[2021-10-24 06:00] VITALS: BP 141/71
--- NOTE | 2021-10-24 06:46 | NUR ---
Patient in room PCU 3024. I have received report from Isis Aguilar and had the opportunity to ask questions and assume patient care.
[2021-10-24] MEDS: K and/or MAG REPLACEMENT MC SCH ×2 (08:00→19:51)
[2021-10-24] MEDS ORDERED: heparin 1,000unit/ml 10ml vial 10 ML IV ONE (08:00)
[2021-10-24] MEDS ORDERED: heparin 1,000 units/ml 10ml inj HE ONE ×2 (08:00)
[2021-10-24] MEDS ORDERED: EPOETIN ALFA-EPBX 20,000 UNIT/ML 1 ML MDV IV ONE (08:00)
[2021-10-24] MEDS ORDERED: normal saline 1000ml 250 ML IV PRN (08:00)
[2021-10-24] MEDS: fluconazole-Diflucan 200mg/NS 100 ML IV SCH (08:44)
[2021-10-24] MEDS: meropenem inj 500 MG in normal saline 100ml IV soln 100 ML IV SCH (08:44)
[2021-10-24] MEDS: atorvastatin 20mg tablet GT SCH (08:44)
[2021-10-24] MEDS: PARoxetine 20mg tablet GT SCH (08:45)
[2021-10-24] MEDS: topiramate 25mg tablet PEG SCH ×2 (08:45→22:40)
[2021-10-24] MEDS: lansoprazole 15mg solutab PEG SCH (08:45)
[2021-10-24] MEDS: clopidogrel 75mg tablet PEG SCH (08:45)
[2021-10-24] MEDS: heparin, porcine 5000 units/ml vial SQ SCH ×2 (08:58→22:40)
[2021-10-24] MEDS: insulin regular, human U-100 3ml vial - multi-dose SQ SCH ×2 (09:16→14:47)
[2021-10-24 11:00] VITALS: BP 139/77
[2021-10-24 15:00] VITALS: BP 160/72
--- NOTE | 2021-10-24 15:30 | NUR ---
Reassessment: Pt remains NPO and tolerating TF at goal rate with GRV WNL. Pt pending TDC placement per EMR. Will monitor need to adjust TF recommendations as pt no longer receiving CVVH. LB 10/23. Will continue to follow. Recommendations: 1) Continuous TF via G-tube using Vital High Protein at 75 ml/hr goal to provide 1800 ml volume/day, 1800 kcal, 158 g protein, 1512 ml water 2) Monitor for TF adjustment needs off CVVH on HD; PALB steadily improving 3) Additional water flush per MD on HD 4) PALB q Wednesday/ 5) Daily scaled weights 6) Routine bowel care Addendum: 10/24/21 at [address] Amended: Links added.
[2021-10-24 18:00] VITALS: BP 131/69
--- NOTE | 2021-10-24 18:42 | NUR ---
Problems reprioritized. Patient report given, questions answered & plan of care reviewed with Isis FU.
[2021-10-24] MEDS ORDERED: lactobacillus rhamnosus 10,000 MMU CELLS/CAPSULE PO SCH (20:00)
[2021-10-24] MEDS: insulin glargine (Lantus) pen - multi-dose SQ SCH (21:00)
[2021-10-24 22:00] VITALS: BP 144/64
[2021-10-25 02:00] VITALS: BP 129/69
[2021-10-25] MEDS: VANCOMYCIN LEVEL IV SCH (03:00)
[2021-10-25 06:27] LABS: BASOPHILS % (AUTO) 0.4 % (0-1); EOSINOPHILS # (AUTO) 0.2 X10'3 (0-0.9); EOSINOPHILS % (AUTO) 2.4 % (0-6); HEMATOCRIT 25.7 % (42.0-52.0); HEMOGLOBIN 8.5 g/dl (14.0-17.9); LYMPHOCYTES # (AUTO) 0.9 X10'3 (1.1-4.8); LYMPHOCYTES % (AUTO) 9.4 % (21-51); MEAN CORPUSCULAR HEMOGLOBIN 29.9 PG (27.0-31.0); MEAN CORPUSCULAR HGB CONC 33.2 g/dL (33.0-36.5); MEAN CORPUSCULAR VOLUME 90.3 FL (78-98); MEAN PLATELET VOLUME 8.9 FL (7.4-10.4); MONOCYTES # (AUTO) 0.4 X10'3 (0-0.9); MONOCYTES % (AUTO) 4.1 % (2-12); NEUTROPHILS # (AUTO) 8.3 X10'3 (1.8-7.7); NEUTROPHILS % (AUTO) 83.7 % (42-75); PLATELET COUNT 166 X10'3 (140-440); RED BLOOD COUNT 2.85 X10'6 (4.70-6.10); RED CELL DISTRIBUTION WIDTH 16.7 % (11.5-14.5); WHITE BLOOD COUNT 9.9 X10'3 (4.5-11.0)
[2021-10-25 07:00] VITALS: BP 142/70
--- NOTE | 2021-10-25 07:05 | NUR ---
Patient in room PCU 3024. I have received report from Isis FU and had the opportunity to ask questions and assume patient care.
[2021-10-25 07:12] LABS: ALANINE AMINOTRANSFERASE 20 U/L (12-78); ALBUMIN 1.3 G/DL (3.4-5.0); ALBUMIN/GLOBULIN RATIO 0.3 (1.1-1.5); ALKALINE PHOSPHATASE 84 IU/L (46-116); ANION GAP 13 (8-16); ASPARTATE AMINO TRANSFERASE 29 U/L (10-37); BILIRUBIN,TOTAL 0.7 MG/DL (0.1-1.0); BLOOD UREA NITROGEN 82 MG/DL (7-18); BUN/CREATININE RATIO 29.5 (5.4-32.0); CALCIUM 7.6 MG/DL (8.5-10.1); CHLORIDE 105 MMOL/L (99-107); CREATININE 2.78 MG/DL (0.60-1.10); GLUCOSE 119 MG/DL (70-104); POTASSIUM 4.9 MMOL/L (3.5-5.1); SODIUM 142 MMOL/L (135-145); TOTAL CARBON DIOXIDE 24.4 MMOL/L (24-32); TOTAL PROTEIN 5.2 G/DL (6.4-8.2); eGFR 23 ML/MIN
[2021-10-25] MEDS: K and/or MAG REPLACEMENT MC SCH ×2 (08:00→20:00)
[2021-10-25] MEDS: lansoprazole 15mg solutab PEG SCH (08:25)
[2021-10-25] MEDS: clopidogrel 75mg tablet PEG SCH (08:25)
[2021-10-25] MEDS: atorvastatin 20mg tablet GT SCH (08:25)
[2021-10-25] MEDS: fluconazole-Diflucan 200mg/NS 100 ML IV SCH (08:25)
[2021-10-25] MEDS: topiramate 25mg tablet PEG SCH ×2 (08:25→20:00)
[2021-10-25] MEDS: PARoxetine 20mg tablet GT SCH (08:25)
[2021-10-25] MEDS: heparin, porcine 5000 units/ml vial SQ SCH ×2 (08:26→20:00)
[2021-10-25] MEDS: insulin regular, human U-100 3ml vial - multi-dose SQ SCH ×2 (08:57→14:19)
[2021-10-25] MEDS: meropenem inj 500 MG in normal saline 100ml IV soln 100 ML IV SCH (09:09)
[2021-10-25 11:00] VITALS: BP 147/76
[2021-10-25] MEDS: acetaminophen 325mg tablet GT PRN (14:13)
[2021-10-25 15:00] VITALS: BP 136/78
[2021-10-25 18:00] VITALS: BP 130/82
[2021-10-25] MEDS: insulin glargine (Lantus) pen - multi-dose SQ SCH (21:00)
[2021-10-25 22:00] VITALS: BP 155/83
[2021-10-25] MEDS ORDERED: metoprolol tartrate 1mg/ml inj IV ONE (23:15)
[2021-10-26 02:00] VITALS: BP 135/77
[2021-10-26] MEDS: VANCOMYCIN LEVEL IV SCH (03:00)
[2021-10-26] MEDS ORDERED: metoprolol tartrate 1mg/ml inj IV ONE (03:05)
[2021-10-26 04:24] LABS: BASOPHILS # (AUTO) 0.1 X10'3 (0-0.2); BASOPHILS % (AUTO) 1.1 % (0-1); EOSINOPHILS % (AUTO) 0.4 % (0-6); HEMATOCRIT 29.6 % (42.0-52.0); HEMOGLOBIN 9.5 g/dl (14.0-17.9); LYMPHOCYTES # (AUTO) 1.1 X10'3 (1.1-4.8); LYMPHOCYTES % (AUTO) 11.9 % (21-51); MEAN CORPUSCULAR HEMOGLOBIN 29.3 PG (27.0-31.0); MEAN CORPUSCULAR HGB CONC 32.2 g/dL (33.0-36.5); MEAN PLATELET VOLUME 9.5 FL (7.4-10.4); MONOCYTES # (AUTO) 0.6 X10'3 (0-0.9); MONOCYTES % (AUTO) 6.3 % (2-12); NEUTROPHILS # (AUTO) 7.5 X10'3 (1.8-7.7); NEUTROPHILS % (AUTO) 80.3 % (42-75); PLATELET COUNT 197 X10'3 (140-440); RED BLOOD COUNT 3.25 X10'6 (4.70-6.10); RED CELL DISTRIBUTION WIDTH 17.1 % (11.5-14.5); WHITE BLOOD COUNT 9.3 X10'3 (4.5-11.0)
[2021-10-26 04:33] LABS: ALANINE AMINOTRANSFERASE 23 U/L (12-78); ALBUMIN 1.3 G/DL (3.4-5.0); ALBUMIN/GLOBULIN RATIO 0.3 (1.1-1.5); ALKALINE PHOSPHATASE 80 IU/L (46-116); ANION GAP 11 (8-16); ASPARTATE AMINO TRANSFERASE 42 U/L (10-37); BILIRUBIN,TOTAL 0.7 MG/DL (0.1-1.0); BLOOD UREA NITROGEN 113 MG/DL (7-18); BUN/CREATININE RATIO 31.7 (5.4-32.0); CALCIUM 7.6 MG/DL (8.5-10.1); CHLORIDE 110 MMOL/L (99-107); CREATININE 3.56 MG/DL (0.60-1.10); GLUCOSE 163 MG/DL (70-104); POTASSIUM 5.9 MMOL/L (3.5-5.1); SODIUM 146 MMOL/L (135-145); TOTAL CARBON DIOXIDE 24.6 MMOL/L (24-32); TOTAL PROTEIN 5.5 G/DL (6.4-8.2); VANCOMYCIN,RANDOM 16.4 UG/ML; eGFR 17 ML/MIN
[2021-10-26] MEDS ORDERED: normal saline 500ml IV soln 500 ML IV ONE (05:55)
[2021-10-26] MEDS ORDERED: morphine 2 MG/ML inj. syringe IV ONE (05:55)
[2021-10-26 06:00] VITALS: BP 106/60
--- NOTE | 2021-10-26 07:28 | NUR ---
Patient in room PCU 3024. I have received report from Isis FU and had the opportunity to ask questions and assume patient care.
[2021-10-26] MEDS: lansoprazole 15mg solutab PEG SCH (07:30)
[2021-10-26] MEDS: fluconazole-Diflucan 200mg/NS 100 ML IV SCH (08:00)
[2021-10-26] MEDS: meropenem inj 500 MG in normal saline 100ml IV soln 100 ML IV SCH (08:00)
[2021-10-26] MEDS: atorvastatin 20mg tablet GT SCH (08:00)
[2021-10-26] MEDS: topiramate 25mg tablet PEG SCH ×2 (08:00→20:00)
[2021-10-26] MEDS: K and/or MAG REPLACEMENT MC SCH ×2 (08:00→20:00)
[2021-10-26] MEDS: PARoxetine 20mg tablet GT SCH (08:00)
[2021-10-26] MEDS: clopidogrel 75mg tablet PEG SCH (08:00)
[2021-10-26] MEDS: heparin, porcine 5000 units/ml vial SQ SCH ×2 (08:00→20:00)
[2021-10-26] MEDS ORDERED: albumin (human) 25% 100ml IV 300 ML IV PRN (08:30)
[2021-10-26] MEDS ORDERED: heparin 1,000unit/ml 10ml vial 10 ML IV ONE (08:30)
[2021-10-26] MEDS ORDERED: heparin 1,000 units/ml 10ml inj IV ONE (08:30)
[2021-10-26 08:35] LABS: BASOPHILS # (AUTO) 0.1 X10'3 (0-0.2); BASOPHILS % (AUTO) 0.8 % (0-1); EOSINOPHILS % (AUTO) 0.3 % (0-6); HEMATOCRIT 27.3 % (42.0-52.0); HEMOGLOBIN 8.9 g/dl (14.0-17.9); LYMPHOCYTES # (AUTO) 1.2 X10'3 (1.1-4.8); LYMPHOCYTES % (AUTO) 13.6 % (21-51); MEAN CORPUSCULAR HEMOGLOBIN 29.4 PG (27.0-31.0); MEAN CORPUSCULAR HGB CONC 32.6 g/dL (33.0-36.5); MEAN CORPUSCULAR VOLUME 90.2 FL (78-98); MEAN PLATELET VOLUME 9.5 FL (7.4-10.4); MONOCYTES # (AUTO) 0.5 X10'3 (0-0.9); MONOCYTES % (AUTO) 6.1 % (2-12); NEUTROPHILS # (AUTO) 6.9 X10'3 (1.8-7.7); NEUTROPHILS % (AUTO) 79.2 % (42-75); PLATELET COUNT 173 X10'3 (140-440); RED BLOOD COUNT 3.02 X10'6 (4.70-6.10); WHITE BLOOD COUNT 8.7 X10'3 (4.5-11.0)
[2021-10-26] MEDS ORDERED: heparin 1,000 units/ml 10ml inj HE ONE ×2 (08:35→09:55)
[2021-10-26 09:02] LABS: ALBUMIN 1.3 G/DL (3.4-5.0); ANION GAP 13 (8-16); BLOOD UREA NITROGEN 112 MG/DL (7-18); BUN/CREATININE RATIO 30.9 (5.4-32.0); CALCIUM 7.4 MG/DL (8.5-10.1); CHLORIDE 112 MMOL/L (99-107); CREATININE 3.63 MG/DL (0.60-1.10); GLUCOSE 147 MG/DL (70-104); POTASSIUM 5.9 MMOL/L (3.5-5.1); SODIUM 147 MMOL/L (135-145); TOTAL CARBON DIOXIDE 22.2 MMOL/L (24-32); eGFR 17 ML/MIN
--- NOTE | 2021-10-26 15:19 | NUR ---
Paged Dr. Rodriguez regarding comfort care orders. PAGER ID: [phone] MESSAGE: [phone], Sage Coombs. I received the comfort care orders but I need to know what to D/C, and do I order roxanol or morphine? Paulina [facility] [id number].
[2021-10-26 18:00] VITALS: BP 119/78
--- NOTE | 2021-10-26 19:38 | NUR ---
Problems reprioritized. Patient report given, questions answered & plan of care reviewed with Isis FU, patient on comfort care.
[2021-10-26] MEDS: insulin glargine (Lantus) pen - multi-dose SQ SCH (21:00)
--- NOTE | 2021-10-26 21:09 | NUR ---
pt is getting comfort care Addendum: 10/26/21 at 2109 by Isis Pruitt RN Amended: Links added.
[2021-10-26 22:00] VITALS: BP 120/80
[2021-10-27] MEDS: morphine 10mg/0.5ml (conc. morphine) oral syringe PO PRN ×3 (01:15→09:41)
[2021-10-27 02:00] VITALS: BP 123/79
[2021-10-27] MEDS: VANCOMYCIN LEVEL IV SCH (03:00)
[2021-10-27 06:00] VITALS: BP_SYST 101; BP_SYST 115; BP_DIAS 54; BP_DIAS 69
[2021-10-27] MEDS: lansoprazole 15mg solutab PEG SCH (07:30)
[2021-10-27] MEDS: K and/or MAG REPLACEMENT MC SCH ×2 (08:00→19:56)
[2021-10-27] MEDS: topiramate 25mg tablet PEG SCH ×2 (08:00→19:56)
[2021-10-27] MEDS: clopidogrel 75mg tablet PEG SCH (08:00)
[2021-10-27] MEDS: atorvastatin 20mg tablet GT SCH (08:00)
[2021-10-27] MEDS: heparin, porcine 5000 units/ml vial SQ SCH ×2 (08:00→19:56)
[2021-10-27] MEDS: PARoxetine 20mg tablet GT SCH (08:00)
--- NOTE | 2021-10-27 17:46 | NUR ---
Patient was repositioned q2h. Oral care done, oral morphine given once for com Addendum: 10/27/21 at 1747 by Claudia Pruitt RN Oral morphine administered. Patient is resting in bed. Hourly rounds continued.
--- NOTE | 2021-10-27 18:44 | NUR ---
Problems reprioritized. Patient report given, questions answered & plan of care reviewed with Isis FU.
[2021-10-27] MEDS: insulin glargine (Lantus) pen - multi-dose SQ SCH (19:56)
[2021-10-27] MEDS ORDERED: morphine 2 MG/ML inj. syringe IV PRN (22:30)
[2021-10-27] MEDS ORDERED: LORazepam 2 mg/ml vial IV PRN (22:30)
[2021-10-27] MEDS ORDERED: morphine 10mg/0.5ml (conc. morphine) oral syringe PO PRN (22:30)
--- NOTE | 2021-10-28 06:50 | NUR ---
Patient in room PCU 3024. I have received report from Isis FU and had the opportunity to ask questions and assume patient care.
[2021-10-28 06:54] VITALS: BP 79/48
--- NOTE | 2021-10-28 09:57 | NUR ---
Reassessment: Pt has been made DNR with comfort care. Pt not documented to be receiving TF. Will continue to follow per LOS. Recommendations: 1) Bowel care per comfort care measures Addendum: 10/28/21 at [address] Amended: Links added.
[2021-10-28] MEDS: topiramate 25mg tablet PEG SCH (10:44)
[2021-10-28 11:35] VITALS: BP 74/33
--- NOTE | 2021-10-28 12:35 | NUR ---
Pt 1720 confirmed with charge nurse Paulina. please see Please see Expiration Memorandum note Addendum: 10/28/21 at 1256 by Bettye Pruitt RN Per family [facility] in [place] is to be called [phone] spoke with Landy
--- NOTE | 2021-10-28 12:50 | NUR ---
Paged Dr Granados RE: Sage Coombs, [id number]. Pt 1235pm,
--- NOTE | 2021-10-28 13:02 | NUR ---
Spoke to Pavithra Bradshaw niece of , she stated she will call the ret of the family to inform them also to carry on with [facility]
--- NOTE | 2021-10-28 16:40 | NUR ---
Pt was received by the home, belongings taken forms signed.
== END 2021-10-28 16:25 | DRG 853 ==
LOC: ICU 2S 01:40 → UNDOADMIN 01:40 → ICU 2S 04:54 → PCU 3S 10-21 19:32
PROVIDERS: ADMIT Student in an Organized Health Care Education/Training Program; ATTEND Student in an Organized Health Care Education/Training Program
PROC: BW211ZZ Computerized Tomography (CT Scan) of Abdomen and Pelvis using Low Osmolar Contrast (ICD-10-PCS; 2021-10-08)
PROC: 0DH63UZ Insertion of Feeding Device into Stomach, Percutaneous Approach (ICD-10-PCS; 2021-10-09)
PROC: 02HV33Z Insertion of Infusion Device into Superior Vena Cava, Percutaneous Approach (ICD-10-PCS; 2021-10-09)
PROC: B548ZZA Ultrasonography of Superior Vena Cava, Guidance (ICD-10-PCS; 2021-10-09)
PROC: 03HY32Z Insertion of Monitoring Device into Upper Artery, Percutaneous Approach (ICD-10-PCS; 2021-10-09)
PROC: 0DQ60ZZ Repair Stomach, Open Approach (ICD-10-PCS; principal; 2021-10-09 21:37)
PROC: 5A1955Z Respiratory Ventilation, Greater than 96 Consecutive Hours (ICD-10-PCS; 2021-10-10)
PROC: 02HV33Z Insertion of Infusion Device into Superior Vena Cava, Percutaneous Approach (ICD-10-PCS; 2021-10-15)
PROC: B548ZZA Ultrasonography of Superior Vena Cava, Guidance (ICD-10-PCS; 2021-10-15)
PROC: 5A1D90Z Performance of Urinary Filtration, Continuous, Greater than 18 hours Per Day (ICD-10-PCS; 2021-10-15)
PROC: 06HY33Z Insertion of Infusion Device into Lower Vein, Percutaneous Approach (ICD-10-PCS; 2021-10-15)
PROC: 30233N1 Transfusion of Nonautologous Red Blood Cells into Peripheral Vein, Percutaneous Approach (ICD-10-PCS; 2021-10-16)
PROC: 5A1D90Z Performance of Urinary Filtration, Continuous, Greater than 18 hours Per Day (ICD-10-PCS; 2021-10-16)
PROC: 5A1D90Z Performance of Urinary Filtration, Continuous, Greater than 18 hours Per Day (ICD-10-PCS; 2021-10-17)
PROC: 5A1D90Z Performance of Urinary Filtration, Continuous, Greater than 18 hours Per Day (ICD-10-PCS; 2021-10-18)
PROC: 5A1D90Z Performance of Urinary Filtration, Continuous, Greater than 18 hours Per Day (ICD-10-PCS; 2021-10-19)
DX: A41.9 Sepsis, unspecified organism (principal); R65.21 Severe sepsis with septic shock; K65.9 Peritonitis, unspecified; K25.5 Chronic or unspecified gastric ulcer with perforation; N17.0 Acute kidney failure with tubular necrosis; J96.00 Acute respiratory failure, unspecified whether with hypoxia or hypercapnia; R18.8 Other ascites; Z66 Do not resuscitate; Z51.5 Encounter for palliative care; F03.90 Unspecified dementia, unspecified severity, without behavioral disturbance, psychotic disturbance, mood disturbance, and anxiety; I46.9 Cardiac arrest, cause unspecified; I12.9 Hypertensive chronic kidney disease with stage 1 through stage 4 chronic kidney disease, or unspecified chronic kidney disease; D64.9 Anemia, unspecified; Z20.822 Contact with and (suspected) exposure to COVID-19; F32.A Depression, unspecified; R10.0 Acute abdomen; E11.22 Type 2 diabetes mellitus with diabetic chronic kidney disease; E78.5 Hyperlipidemia, unspecified; N18.9 Chronic kidney disease, unspecified; Z86.16 Personal history of COVID-19; Z86.73 Personal history of transient ischemic attack (TIA), and cerebral infarction without residual deficits; Z79.899 Other long term (current) drug therapy; Z79.4 Long term (current) use of insulin; Z78.1 Physical restraint status
CPT/HCPCS: 36415; 36430; 36569; 36573; 36600; 49406; 71045; 74018; 74176; 74177; 76770; 76937; 80048; 80053; 80069; 80202; 81001; 82272; 82330; 82570; 82803; 82948; 83036; 83605; 83735; 84100; 84132; 84134; 84145; 84156; 84300; 84478; 85007; 85008; 85018; 85025; 85610; 85730; 86885; 86900; 86901; 86920; 87040; 87070; 87075; 87081; 87102; 87205; 87207; 87324; 87340; 87449; 87635; 92508; 92616; 93005; 94002; 94003; 94760; 94799; 97110; 97161; 97530; 97535; A4215; A4618; A6253; A6402; A6407; A6449; A7000; B4087; C1758; C9113; E1594; G0257; G0378; J1100; J1170; J1450; J1644; J1720; J1815; J1940; J2185; J2248; J2250; J2270; J2405; J2543; J2597; J2704; J2765; J3010; J3370; J3475; J3480; J3490; J7030; J7040; J7050; J7060; J7070; J7120; J7121; P9016; P9045; Q4081; Q9963; Q9967